=== PATIENT | female | born 1945 | race Caucasian/White ===

== ENCOUNTER 2018-03-10 10:39 | Observation (INO) | payer MEDICARE ==
--- NOTE | 2018-03-10 11:34 | RAD ---
Indication: Speech difficulty. CT of the brain was performed without IV contrast. Comparison is made with previous MRI dated September 03, 2013. Ventricular structures are midline. No midline shift is noted. The extra-axial spaces are unremarkable. There is no evidence of intracranial mass or hemorrhage. Hypodensity in the left frontal lobe adjacent to the ventricle likely represents old infarct as this was identified on prior MRI. Chronic ischemic White matter change is also noted. Mastoid air cells and paranasal sinuses are otherwise unremarkable. 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 CHRONIC ISCHEMIC WHITE MATTER CHANGE IS NOTED. NO INTRACRANIAL MASS OR HEMORRHAGE IS NOTED.
[2018-03-10 11:58] LABS: ABS Basophils 0.1 10^3/ul (0-0.2); ABS Eosinophils 0.2 10^3/ul (0-0.6); ABS Lymphocytes 2.9 10^3/ul (1.0-4.8); ABS Monocytes 0.7 10^3/ul (0-0.8); ABS Neutrophils 6.4 10^3/ul (1.5-7.7); ABS Nucleated RBC 0 10^3/ul; Eosinophil % 1.6 % (0-6); Hematocrit 42 % (35-47); Hemoglobin 14.3 g/dl (12.0-16.0); Lymphocyte % 27.9 % (25-47); Mean Corpuscular HGB Conc 35 g/dl (31-36); Mean Corpuscular Hemoglobin 30 pg (27-31); Mean Corpuscular Volume 88 fL (80-97); Mean Platelet Volume 7.3 um3 (7.4-10.4); Nucleated Red Blood Cells % 0.1; Platelet Count 270 10^3/ul (150-450); Red Blood Count 4.72 10^6/ul (4.0-5.4); Red Cell Distribution Width 13 % (10.5-15); White Blood Count 10.3 10^3/ul (3.5-10.8)
[2018-03-10 12:06] LABS: INR 0.96 (0.77-1.02)
--- NOTE | 2018-03-10 12:13 | RAD ---
INDICATION: Speech difficulty. Single frontal view of the chest performed at 1127 hours was reviewed. Comparison is made with previous exam dated August 25, 2016. No mediastinal shift is noted. Heart is of normal size and configuration. Lung dominguez appear clear. Previously identified infiltrates are no longer present. IMPRESSION: NO ACTIVE CARDIOPULMONARY DISEASE IS NOTED.
[2018-03-10 12:15] LABS: EGFR Non-African American 98.5 (>60)
[2018-03-10] MEDS ORDERED: Aspirin TAB* 325 MG PO ONE (12:48)
[2018-03-10] MEDS ORDERED: Iohexol 350* (CONTRAST) 500 ML MDV IV ONE (12:58)
[2018-03-10] MEDS ORDERED: Aspirin 81 mg CHEW TAB* 81 MG TAB.CHEW ONE (13:02)
--- NOTE | 2018-03-10 13:49 | RAD ---
Indication: Change in balance and speech. Contrast: Administered 80.1 ml of OMNIPAQUE 350 mg/ml CTA of the neck and head was performed after IV contrast administration. Coronal and sagittal reconstructed images were obtained. Aortic arch is unremarkable. Atherosclerosis of the common carotid arteries are noted. No evidence of calcific plaque is noted in the carotid bulb. The internal carotid arteries demonstrates no evidence of branch occlusion. No aneurysm dilatation is noted. The vertebral arteries demonstrates no evidence of vertebral artery dissection or occlusion. The intracranial vessels demonstrates no aneurysmal dilatation or branch occlusion. Posterior cerebral arteries are unremarkable. No branch occlusion is identified. The lung apices are otherwise unremarkable. No abnormal adenopathy is noted although scattered lymph nodes are present throughout the neck. IMPRESSION: NO EVIDENCE OF BRANCH OCCLUSION OR ANEURYSMAL DILATATION IS NOTED OF THE CAROTID ARTERIES OR INTRACRANIAL CIRCULATION.
--- NOTE | 2018-03-10 14:31 | ED ---
Brett Nicole Stephanie, scribed for Kvng Carrillo MD on 03/10/18 at 1148 . Neurological HPI - HPI Summary HPI Summary: The pt is a 72 y/o F presenting to the ED with c/o dizziness that began yesterday. Symptoms include slurred speech and decreased balance. The daughter noticed speech difficulties over the phone. The pt describes her dizziness as being off balance. She denies vision changes. - History of Current Complaint Chief Complaint: EDDizziness Stated Complaint: POSS TIA Time Seen by Provider: 03/10/18 10:48 Hx Obtained From: Patient, Family/[employer] - daughter Onset/Duration: Sudden Onset, Started days ago - 1, Still Present Timing: Constant Current Severity: Moderate Pain Intensity: 0 Pain Scale Used: 0-10 Numeric Character: Dizzy, Impaired Speech, Other: - difficulty with ambulation Aggravating: Nothing Alleviating: Nothing Associated Signs and Symptoms: Positive: Unsteady Gait, Dizziness, Impaired Speech. Negative: Visual Changes - Additional Pertinent History Primary Care Physician: [id number] - Allergy/Home Medications Allergies/Adverse Reactions: Allergies Allergy/AdvReac Type Severity Reaction Status Date / Time hydrochlorothiazide Allergy Anaphylatic Verified 03/10/18 10:42 Shock hydromorphone Allergy Headache Verified 03/10/18 10:42 Home Medications: Home Medications Antipyrine-Benzocaine 2 drop RIGHT EAR QID PRN 03/10/18 [History Confirmed 03/10] Calcium Carbonate/Vitamin D3 [Calcium 500 + Vit D Caplet] 1 each PO DAILY [History Confirmed 03/10/18] Cetirizine* [ZyrTEC 10 MG TAB*] 10 mg PO DAILY 03/10/18 [History Confirmed 03/10] Escitalopram (NF) [Lexapro 10 mg (NF)] 5 mg PO DAILY 03/10/18 [History Confirmed 03/10/18] Fluticasone NASAL SPRAY 50MCG* [Flonase NASAL SPRAY 50MCG*] 1 - 2 spray BOTH NARES DAILY 03/10/18 [History Confirmed 03/10/18] Losartan TAB* [Cozaar TAB*] 100 mg PO DAILY 03/10/18 [History Confirmed 03/10/18 ] Multivitamins/Minerals TAB* [Theragran/minerals TAB*] 1 tab PO DAILY 03/10/18 [ History Confirmed 03/10/18] amLODIPine TAB* [Norvasc 5 mg TAB*] 5 mg PO DAILY 03/10/18 [History Confirmed ] carBAMazepine TAB(*) [TEGretol TAB(*)] 100 mg PO BID 03/10/18 [History Confirmed 03/10/18] PMH/Surg Hx/FS Hx/Imm Hx Endocrine/Hematology History: Denies: Hx Diabetes Cardiovascular History: Reports: Hx Hypercholesterolemia, Hx Hypertension Denies: Hx Pacemaker/ICD Respiratory History: Reports: Hx Asthma, Hx Pneumonia - 2016 Musculoskeletal History: Reports: Other Musculoskeletal History - Broken shoulder, s/p fix Sensory History: Reports: Hx Contacts or Glasses, Hx Hearing Aid, Hx Hearing Problem Opthamlomology History: Reports: Hx Contacts or Glasses Neurological History: Reports: Other Neuro Impairments/Disorders - Trigeminal neuralgia with surgery to fix Psychiatric History: Denies: Hx Panic Disorder - Cancer History Hx Chemotherapy: No Hx Radiation Therapy: No - Surgical History Surgery Procedure, Year, and Place: , 1969. with appendectomy, 1973. MICRODECOMPRESSION SURGERY TO BRAIN 2003. HYSTERECTOMY AGE 36. LEFT SHOULDER fix after fracture 2009 Hx Anesthesia Reactions: No Infectious Disease History: No Infectious Disease History: Denies: Traveled Outside the [place] in Last 30 Days - Family History Known Family History: Positive: Other - asthma (sister) - Social History Occupation: Retired Lives: Alone Alcohol Use: None Hx Substance Use: No Substance Use Type: Reports: None Hx Tobacco Use: No Smoking Status (MU): Never Smoked Tobacco Have You Smoked in the Last Year: No Review of Systems Negative: Fever Neurological: Other - difficulty with ambulation (decreased balance), dizziness Positive: Slurred Speech All Other Systems Reviewed And Are Negative: Yes Physical Exam - Summary Physical Exam Summary: General: well-appearing, no pain distress Skin: warm, color reflects adequate perfusion, dry Head: normal Eyes: EOMI, ROX ENT: normal Neck: supple, nontender Respiratory: CTA, breath sounds present Cardiovascular: RRR Abdomen: soft, nontender Bowel: present Musculoskeletal: normal, strength/ROM intact Neurological: sensory/motor intact, A&O x3, slurred speech Psychological: affect/mood appropriate Triage Information Reviewed: Yes Vital Signs On Initial Exam: Initial Vitals Temp Pulse Resp BP Pulse Ox 97.9 F 77 16 166/64 95 03/10/18 10:41 03/10/18 10:41 03/10/18 10:41 03/10/18 10:41 03/10/18 10:41 Vital Signs Reviewed: Yes Diagnostics - Vital Signs Vital Signs Temp Pulse Resp BP Pulse Ox 03/10/18 10:41 97.9 F 77 16 166/64 95 - Laboratory Lab Results: Lab Results 03/10/18 03/10/18 03/10/18 Range/Units 11:47 11:47 11:47 WBC 10.3 (3.5-10.8) 10^3/ul RBC 4.72 (4.0-5.4) 10^6/ul Hgb 14.3 (12.0-16.0) g/dl Hct 42 (35-47) % MCV 88 (80-97) fL MCH 30 (27-31) pg MCHC 35 (31-36) g/dl RDW 13 (10.5-15) % Plt Count 270 (150-450) 10^3/ul MPV 7.3 L (7.4-10.4) um3 Neut % (Auto) 62.7 (38-83) % Lymph % (Auto) 27.9 (25-47) % Livingston % (Auto) 6.5 (0-7) % Eos % (Auto) 1.6 (0-6) % Baso % (Auto) 1.3 (0-2) % Absolute Neuts (auto) 6.4 (1.5-7.7) 10^3/ul Absolute Lymphs (auto) 2.9 (1.0-4.8) 10^3/ul Absolute Monos (auto) 0.7 (0-0.8) 10^3/ul Absolute Eos (auto) 0.2 (0-0.6) 10^3/ul Absolute Basos (auto) 0.1 (0-0.2) 10^3/ul Absolute Nucleated RBC 0 10^3/ul Nucleated RBC % 0.1 INR (Anticoag Therapy) 0.96 (0.77-1.02) APTT 31.0 (26.0-36.3) seconds Sodium 137 L (139-145) mmol/L Potassium 3.7 (3.5-5.0) mmol/L Chloride 103 (101-111) mmol/L Carbon Dioxide 27 (22-32) mmol/L Anion Gap 7 (2-11) mmol/L BUN 17 (6-24) mg/dL Creatinine 0.60 (0.51-0.95) mg/dL Est GFR ( Amer) 126.7 (>60) Est GFR (Non-Af Amer) 98.5 (>60) BUN/Creatinine Ratio 28.3 H (8-20) Glucose 129 H (70-100) mg/dL Lactic Acid (0.5-2.0) mmol/L Calcium 9.2 (8.6-10.3) mg/dL Magnesium 2.0 (1.9-2.7) mg/dL Total Bilirubin 0.40 (0.2-1.0) mg/dL AST 14 (13-39) U/L ALT 17 (7-52) U/L Alkaline Phosphatase 68 (34-104) U/L Ammonia (16-53) mcmol/L Total Creatine Kinase 56 (10-223) U/L CK-MB (CK-2) 0.9 (0.6-6.3) ng/mL Troponin I 0.01 (<0.04) ng/mL C-Reactive Protein 9.31 H (< 5.00) mg/L B-Natriuretic Peptide ( - 100) pg/mL Total Protein 7.1 (6.4-8.9) g/dL Albumin 4.0 (3.2-5.2) g/dL Globulin 3.1 (2-4) g/dL Albumin/Globulin Ratio 1.3 (1-3) Lipase 17 (11.0-82.0) U/L TSH 2.14 (0.34-5.60) mcIU/mL Acetaminophen < 15 mcg/mL Serum Alcohol < 10 (<10) mg/dL 03/10/18 03/10/18 Range/Units 11:47 11:47 WBC (3.5-10.8) 10^3/ul RBC (4.0-5.4) 10^6/ul Hgb (12.0-16.0) g/dl Hct (35-47) % MCV (80-97) fL MCH (27-31) pg MCHC (31-36) g/dl RDW (10.5-15) % Plt Count (150-450) 10^3/ul MPV (7.4-10.4) um3 Neut % (Auto) (38-83) % Lymph % (Auto) (25-47) % Livingston % (Auto) (0-7) % Eos % (Auto) (0-6) % Baso % (Auto) (0-2) % Absolute Neuts (auto) (1.5-7.7) 10^3/ul Absolute Lymphs (auto) (1.0-4.8) 10^3/ul Absolute Monos (auto) (0-0.8) 10^3/ul Absolute Eos (auto) (0-0.6) 10^3/ul Absolute Basos (auto) (0-0.2) 10^3/ul Absolute Nucleated RBC 10^3/ul Nucleated RBC % INR (Anticoag Therapy) (0.77-1.02) APTT (26.0-36.3) seconds Sodium (139-145) mmol/L Potassium (3.5-5.0) mmol/L Chloride (101-111) mmol/L Carbon Dioxide (22-32) mmol/L Anion Gap (2-11) mmol/L BUN (6-24) mg/dL Creatinine (0.51-0.95) mg/dL Est GFR ( Amer) (>60) Est GFR (Non-Af Amer) (>60) BUN/Creatinine Ratio (8-20) Glucose (70-100) mg/dL Lactic Acid 1.5 (0.5-2.0) mmol/L Calcium (8.6-10.3) mg/dL Magnesium (1.9-2.7) mg/dL Total Bilirubin (0.2-1.0) mg/dL AST (13-39) U/L ALT (7-52) U/L Alkaline Phosphatase (34-104) U/L Ammonia 46 (16-53) mcmol/L Total Creatine Kinase (10-223) U/L CK-MB (CK-2) (0.6-6.3) ng/mL Troponin I (<0.04) ng/mL C-Reactive Protein (< 5.00) mg/L B-Natriuretic Peptide 11 ( - 100) pg/mL Total Protein (6.4-8.9) g/dL Albumin (3.2-5.2) g/dL Globulin (2-4) g/dL Albumin/Globulin Ratio (1-3) Lipase (11.0-82.0) U/L TSH (0.34-5.60) mcIU/mL Acetaminophen mcg/mL Serum Alcohol (<10) mg/dL Result Diagrams: 03/10/18 11:47 03/10/18 11:47 Lab Statement: Any lab studies that have been ordered have been reviewed, and results considered in the medical decision making process. - Radiology CXR Xray Interpretation: No Acute Changes Radiology Interpretation Completed By: Radiologist - NO ACTIVE CARDIOPULMONARY DISEASE IS NOTED. ED physician has reviewed this report. 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 CHRONIC ISCHEMIC WHITE MATTER CHANGE IS NOTED. NO INTRACRANIAL MASS OR HEMORRHAGE IS NOTED. ED physician has reviewed this report. Head CTA CT Interpretation: No Acute Changes CT Interpretation Completed By: Radiologist - NO EVIDENCE OF BRANCH OCCLUSION OR ANEURYSMAL DILATATION IS NOTED OF THE CAROTID ARTERIES OR INTRACRANIAL CIRCULATION. ED physician has reciewed this report. - EKG 10:51 Cardiac Rate: NL EKG Rhythm: Sinus Rhythm - [address] Segment: Normal Ectopy: None NIH Scale - NIH Scale Level of Consciousness: Alert/Keenly Responsive Ask Patient the Month and His/Her Age: Both Correct Ask Pt to Open/Close Eyes and Quality Control Lab Technician/Release Non-Paretic Hand: Both Correctly Best Gaze (Only Horizontal Eye Movement): Normal Visual Field Testing: No Visual Loss Facial Paresis-Pt to Smile & Close Eyes or Grimace Symmetry: Normal/Symmetrical Motor Function - Right Arm: No Drift-Holds 10 Seconds Motor Function - Left Arm: No Drift-Holds 10 Seconds Motor Function - Right Leg: No Drift-Holds 10 Seconds Motor Function - Left Leg: No Drift-Holds 10 Seconds Limb Ataxia-Must be out of Proportion to Weakness Present: Absent Sensory (Use Pinprick to Test Arms/Legs/Trunk/Face): Normal Best Language (Describe Picture, Name Items): Some Loss Dysarthria (Read Several Words): Slurs Some Words Extinction and Inattention: No Abnormality Total Score: 2 Course/Dx - Course Course Of Treatment: At 14:01, Dr. Johnson accepts the pt for admission. DR HIGGINBOTHAM, NEUROLOGY, SAW PATIENT IN ED. ADMIT HOSPITALIST. CRITICAL CARE TIME LESS THAN 30 MINUTES. - Diagnoses Provider Diagnoses: CVA (cerebral vascular accident) - Physician Notifications Discussed Care Of Patient With: Negrita Higginbotham Time Discussed With Above Provider: 11:30 Instructed by Provider To: MD Will See In ED Discharge - Sign-Out/Discharge Documenting (check all that apply): Discharge/Admit/Transfer - Discharge Plan Condition: Stable Disposition: ADMITTED TO [facility] Referrals: Isai Espinoza MD [Primary Care Provider] - - Billing Disposition and Condition Condition: STABLE Disposition: [facility] [place] The documentation as recorded by the Brett canseco Stephanie accurately reflects the service I personally performed and the decisions made by me, Kvng Carrillo MD.
--- NOTE | 2018-03-10 15:54 | CONS ---
CONSULTATION REPORT: DATE OF CONSULT: 03/10/18 REASON FOR CONSULT: Change in speech and balance. HISTORY OF PRESENT ILLNESS: Marquise Blackburn is a 72-year-old woman known to me from outpatient care for trigeminal neuralgia who has developed new neurologic symptoms in the last 24 to 36 hours. Yesterday morning, she woke up and when she got up, she felt "lightheaded." She went back to bed, tried to get up again , again had these symptoms. When asked to further define these symptoms, she indicated that it was "as if I will tip over." She had to grab on to garcia when she walked. Her daughter called her later in the day and noted that her speech was slow, and sounded as if there was marbles in her mouth. This continued yesterday and improved in the evening. She is still however had to hold on to garcia when she walked. There was no change in her facial expression. No numbness and weakness of arms or legs and she said she could use her arms for eating and she could swallow okay. She did feel like she was struggling for words. Her facial expression appeared symmetric. This morning, again she got up and had the same sensation. Her symptoms had improved enough yesterday that she had driven. Today, she did not feel like she could drive. In the middle of the night, she had to go to the bathroom and at that time, she had been fine. She again had transient speech changes as described above this morning, and all of her symptoms have now resolved. Throughout this, she denies any diplopia. There has been no chest pain, chest pressure, shortness of breath. She does not take aspirin at baseline. PAST MEDICAL HISTORY: Includes hypertension and she is on 2 different medications. She indicates that she is on losartan 50 mg a day and is also on a medication that she starts with an A and appears to be amlodipine 5 mg a day. She is also noted in the chart to have a history of high cholesterol and a history of sleep apnea treated with CPAP. She has trigeminal neuralgia for which she has had surgery and gamma knife therapy. Her trigeminal neuralgia has been bilateral, see below surgical history for details. She has a history of osteoarthritis, essential tremor affecting her left greater than right upper extremity. PAST SURGICAL HISTORY: She has had previous surgeries including surgery for left humeral fracture in 2009, microdecompression in 2006 for trigeminal neuralgia, gamma knife surgery bilateral in 2012, hysterectomy with bilateral salpingo- oophorectomy, x2, appendectomy in 1970, bladder repair after hysterectomy. CURRENT MEDICATIONS: Include: 1. Lexapro 5 mg p.o. daily. 2. Losartan 50 mg p.o. daily. 3. Amlodipine 5 mg p.o. daily. 4. She takes Turmeric p.o. b.i.d. 5. She had been on carbamazepine which has been stopped. ALLERGIES: Include HYDROCHLOROTHIAZIDE which resulted in anaphylaxis requiring hospitalization, HYDROMORPHONE which resulted in headaches, and LEVAQUIN which caused rash. FAMILY HISTORY: Includes father who of heart attack at age 65. Mother who had hypertension and breast cancer, congestive heart failure at 93. Sister with breast cancer. Son with diabetes and a myocardial infarction in his 40s. SOCIAL HISTORY: Marquise Blackburn has a remote history of smoking. She rarely drinks alcohol. PHYSICAL EXAM: Most recent temperature was 97.9 degrees Fahrenheit, her heart rate was 74 and regular, respiratory rate was 22, saturation was 93%, and blood pressure was 120/55. She had a regular cardiac rhythm. Her lungs are clear to auscultation. There was no evidence of peripheral edema. No rashes. Her peripheral pulses were intact. She was awake, alert, articulate, had normal language function. Adequate fund of knowledge. Her pupils were equal and responsive to light. Her fundi were flat. She had full extraocular movements with no nystagmus and full dominguez to confrontation. There was no diplopia on extraocular movements. Her facial expression and sensation were equal. Hearing was decreased to finger rub on the left. Palate was upgoing. Tongue was midline and sternocleidomastoid and trapezius were 5/5 in strength. There was normal bulk and tone. No pronator drift. She gave full strength in her upper and lower extremities. Had normal nknwra-jl-peli and tshl-gb-auis movements with the exception of tremor in the left upper extremity which was increased with position. There were no asymmetries to pinprick, cold or light touch. Vibration sensation was decreased at the large toes by approximately 10 seconds. Proprioception was intact. Her reflexes were 2+ and symmetric in her upper and lower extremities. Romberg was negative. She could walk forward and backwards in the room without difficulty; however, tandem gait was difficult. DIAGNOSTIC STUDIES/LAB DATA: Includes TSH of 2.14. Complete metabolic panel with sodium low at 137. BUN and creatinine ratio was elevated at 28.3. Glucose was 129. C-reactive protein was elevated at 9.31. CBC did not show any significant pathology. Her chest x-ray was read as showing no active cardiopulmonary disease. Her CT of the brain does show old hypodensities in the periventricular region consistent with small vessel ischemic disease and one larger lesion near the left frontal horn of the lateral ventricle. This film was reviewed directly compared to previous and this lesion has been seen before on MRI. IMPRESSION AND PLAN: Marquise Blackburn is a 72-year-old woman with a history of hypertension, hyperlipidemia and sleep apnea, who is now in the emergency room for a transient difficulty with balance as well as change in speech, which is slow, and sounds as if there are marbles in her mouth. These 2 findings together are consistent with posterior circulation events and are very concerning for repeat transient ischemic attacks. Given the repeat episodes, I have asked for immediate CTA of the brain and neck to look for a tight stenosis. Aspirin be given here in the emergency room. Pending on results, will depend on disposition here or in [place] with admission for workup for stroke. She will need fasting lipid profile, may need to start on a statin, echocardiogram, telemetry, MRI of the brain. She will need to maintain perfusion and may need perfusion pressure higher than her normal blood pressure depending on stenosis found and symptoms. Again, we will await CTA. She is normotensive in the emergency room. Over an hour and half was spent on direct patient care. Education was given to patient's daughters regarding differential diagnosis and approach to workup and current treatment and communication was given to ER nursing and physician. [id number]/[facility] #: [id number] ALISTAIR
[2018-03-10] MEDS: NS 0.9% 1000 ML* 1,000 ML IV SCH ×2 (17:13→23:59)
--- NOTE | 2018-03-10 20:14 | HP ---
CC: Dr. Isai Espinoza * HISTORY AND PHYSICAL: DATE OF ADMISSION: 03/10/18 PRIMARY CARE PROVIDER: Dr. Isai Espinoza. ATTENDING PHYSICIAN: Dr. Mary Johnson * (dictated by Funmilayo Drake NP) CHIEF COMPLAINT: Dizziness and changes in speech. HISTORY OF PRESENT ILLNESS: Ms. Blackburn is a 72-year-old female with past medical history significant for hypertension, trigeminal neuralgia, who had been in her usual state of health other than feeling dizziness when she gets up to walk recently. She denies any recent fevers, chills, chest pain, cough, shortness of breath, nausea, vomiting, diarrhea, or dysuria. The patient states that yesterday morning when she got up, she felt dizzy, but when she was up and moving, she felt better. Her daughter called her and noticed that she was having difficulty with her speech. Her daughter describes the speech difficulty as slowed speech and talking as though she had marbles in her mouth. She went to check at her mom and this had seemed to have resolved. They then again noticed some changes with her speech this morning and she continues to have dizziness. Due to her symptoms, they brought her to the emergency room for further evaluation. While in the emergency room, the patient received aspirin and normal saline. She had a brain CT showing no significant findings, a chest x-ray with no findings, an EKG that was without acute findings. She had labs that were essentially unremarkable. She was seen in consultation by Neurology for possible TIA versus stroke. It was recommended that the patient be admitted. Hospitalists were asked to evaluate the patient for admission. PAST MEDICAL HISTORY: 1. Hypertension. 2. Trigeminal neuralgia. PAST SURGICAL HISTORY: Status post trigeminal neuralgia surgery. MEDICATIONS: Home medications include: 1. Multivitamin 1 tablet oral daily. 2. Flonase nasal spray 1 to 2 sprays to both nares daily. 3. Calcium 500 plus vitamin D 1 capsule oral daily. 4. Zyrtec 10 mg oral daily. 5. Amlodipine 5 mg oral daily. 6. Ambien 5 mg oral at bedtime as needed for insomnia. 7. Losartan 100 mg oral daily. 8. Lexapro 5 mg oral daily. 9. Antipyrine-benzocaine 2 drops to the right ear four times daily as needed. ALLERGIES: HYDROCHLOROTHIAZIDE caused anaphylactic shock, HYDROMORPHONE causes headaches. FAMILY HISTORY: The patient's father had a history of heart disease, son with a history of diabetes mellitus, and mother and sister with a history of breast cancer. SOCIAL HISTORY: The patient denies tobacco or recreational drug use. She rarely drinks alcohol. Her daughter, Jessica Caceres, will be her surrogate decision maker in the event she is unable to make decisions for herself. REVIEW OF SYSTEMS: I performed an 11-point review of systems. All the pertinent positives and negatives are mentioned in the history of present illness. The remaining review of systems is negative. PHYSICAL EXAMINATION GENERAL APPEARANCE: The patient is alert, pleasant, appears to be in no acute distress. VITAL SIGNS: Temperature 97.9, heart rate 79, respiratory rate 19, O2 sat 93% on room air, blood pressure 131/70. HEENT: Normocephalic, atraumatic. Pupils are equal and reactive to light. Extraocular movements are intact. RESPIRATORY: There is no accessory muscle use. The lungs are clear to auscultation bilateral. CARDIOVASCULAR: Regular rate and rhythm. S1, S2 present. There are no murmurs , rubs, or gallops heard. ABDOMEN: Soft, nontender, nondistended. There are bowel sounds present x4. EXTREMITIES: There is no lower extremity edema. DP and PT pulses are 2+ and symmetric. MUSCULOSKELETAL: There is no clubbing or cyanosis noted. The patient exhibits good strength in all extremities. NEUROLOGICAL: The patient is alert and oriented x4. Cranial nerves II through XII are grossly intact. The patient has equal hand dynamic etching processor. Her dorsi and plantar flex are equal bilateral. She is able to lift both legs off the bed. She has no pronator drift. Her smile is symmetric. Her tongue is midline. She is able to perform heel from ankle to knee bilateral without difficulty. She is able to perform [id number] bilateral without any difficulty. PSYCHOLOGICAL: The patient is calm and cooperative. SKIN: There are no rashes or abnormalities seen. DIAGNOSTIC STUDIES/LAB DATA: Sodium 137, potassium 3.7, chloride 103, CO2 27, BUN 17, creatinine 0.60, glucose 129. White blood cell count 10.3, hemoglobin 14.3, hematocrit 42, platelet count 270. Toxicology: Acetaminophen less than 15, serum alcohol less than 10. EKG: Shows a sinus rhythm, rate of 69. There are no acute signs of ischemia. This EKG is similar to previous EKGs from 08/14/16 and 09/18/08. Chest x-ray from today. Radiologist's impression: No active disease. Brain CT from today. 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 Chronic ischemic white matter changes are noted. No intracranial mass or hemorrhage is noted. Brain CTA from today. Radiologist's impression: No evidence of branch occlusion or aneurysmal dilation is noted of the carotid artery or intracranial circulation. IMPRESSION: Ms. Blackburn is a 72-year-old female with past medical history significant for hypertension, trigeminal neuralgia, who presented to the emergency room with complaints of dizziness and intermittent difficulty with her speech. She will be admitted as an observation for a cerebrovascular accident versus transient ischemic attack workup. ASSESSMENT/PLAN: 1. Dizziness and difficulty with speech. This could represent a cerebrovascular accident versus transient ischemic attack. She has no signs of cerebrovascular accident on her brain CT. She had a head CTA with no signs of any occlusions or dissections. We are going to get an MRI. She will have neuro checks q.4 hours. She will be monitored on telemetry. I questioned if some of her dizziness could be secondary to orthostasis, so I am going to get orthostatic vital signs on her. She has been normotensive without taking her blood pressure medication this morning or last evening. She states she usually takes them in the evening, so I am going to hold her antihypertensives tonight to allow for some permissive hypertension in the setting of a possible cerebrovascular accident. We will check fasting lipids in the morning. She will get an echocardiogram. She has already been seen in consultation by Neurology. We will continue to follow along as her workup is completed. 2. Hypertension. Again, at this time, the patient has been normotensive in the emergency room. We are going to hold her antihypertensives tonight to allow for permissive hypertension. We will resume them accordingly. 3. Trigeminal neuralgia. Continue supportive care. 4. Morbid obesity. The patient's BMI is 36. 5. Fluids, electrolytes, and nutrition. The patient will be on a heart- healthy diet. 6. Code status. Full code. 7. DVT prophylaxis. She is a high risk and will have subcu heparin. 8. Disposition. Observation. TIME SPENT: Time for this admission was approximately 60 minutes, greater than half of that was spent with the patient and her family discussing medications, past medical history, and the events leading up to her arrival today, and performing a physical examination. The case has been reviewed with the attending, Dr. Johnson, who agrees with the plan of care. Reviewed by BREANNA ALICEA 03/11/18 1330 [id number]/[facility] #: [id number] MTDD
[2018-03-10] MEDS: carBAMazepine TAB(*) 200 MG PO SCH (21:38)
[2018-03-10] MEDS: Heparin VIAL(*) 5000 UNITS/ML VIAL (FIVE THOUSAND) SUBCUT SCH (21:39)
[2018-03-10] MEDS: CMCS Melatonin (NF) 3 MG TAB PO SCH (22:38)
[2018-03-11] MEDS: Heparin VIAL(*) 5000 UNITS/ML VIAL (FIVE THOUSAND) SUBCUT SCH ×3 (06:56→21:14)
[2018-03-11] MEDS: NS 0.9% 1000 ML* 1,000 ML IV SCH (07:21)
[2018-03-11] MEDS: Cetirizine* 10 MG TAB PO SCH (08:23)
[2018-03-11] MEDS: Aspirin 81 mg CHEW TAB* 81 MG TAB.CHEW PO SCH (08:23)
[2018-03-11] MEDS: Citalopram TAB* 10 MG PO SCH (08:23)
[2018-03-11] MEDS: Multivitamins/Minerals TAB PO SCH (08:23)
[2018-03-11] MEDS: Fluticasone NASAL SPRAY 50MCG* 16 gm SPRAY BTL BOTH NARES SCH (08:24)
[2018-03-11] MEDS: carBAMazepine TAB(*) 200 MG PO SCH (08:24)
--- NOTE | 2018-03-11 11:09 | PN ---
Subjective Date of Service: 03/11/18 Interval History: Patient seen and examined at bedside. Denies fever, chills, shortness of breath , chest discomfort, N/V/D. Pt states that the dizziness and speech difficulty have resolved. She states that she is surprised that her blood pressure isn't elevated here and it is usually elevated at home and the doctors office, we discussed hoe to make sure the BP cuff is the correct size to ensure correct BP readings. Tele: Sinus rhythm, rate 60-80's Family History: Unchanged from Admission Social History: Unchanged from Admission Past Medical History: Unchanged from Admission Objective Active Medications: Aspirin (Aspirin 81 Mg Chew Tab*) 81 mg PO DAILY LEEANNA Atorvastatin Calcium (Lipitor*) 20 mg PO 1700 LEEANNA Cetirizine HCl (Zyrtec*) 10 mg PO DAILY [facility]EEANNA Citalopram Hydrobromide (Celexa Tab*) 10 mg PO DAILY LEEANNA Fluticasone Propionate (Flonase Nasal [place] 50mcg*) 1 spray BOTH NARES DAILY [facility] Heparin Sodium (Porcine) (Heparin Vial(*)) 5,000 units SUBCUT Q8HR LEEANNA Sodium Chloride (Ns 0.9% 1000 Ml*) 1,000 mls @ 150 mls/hr IV PER RATE [facility] Melatonin (Melatonin (Nf)) 3 mg PO BEDTIME LEEANNA Multivitamins/Minerals (Theragran/Minerals Tab*) 1 tab PO DAILY [facility] Vital Signs - 8 hr 03/11/18 03/11/18 03:29 07:33 Temperature 97.7 F 97.8 F Pulse Rate 67 65 Respiratory 16 16 Rate Blood Pressure 115/50 130/65 (mmHg) O2 Sat by Pulse 95 97 Oximetry Oxygen Devices in Use Now: None Appearance: NAD, laying in bed Ears/Nose/Mouth/Throat: Mucous Membranes Moist Respiratory: Symmetrical Chest Expansion and Respiratory Effort, Clear to Auscultation Cardiovascular: NL Sounds; No Murmurs; No JVD, RRR Abdominal: NL Sounds; No Tenderness; No Distention Extremities: No Edema Skin: No Rash or Ulcers Neurological: Alert and Oriented x 3, NL Muscle Strength and Tone Lines/Tubes/Other Access: Clean, Dry and Intact Peripheral IV - site benign Nutrition: Taking PO's Result Diagrams: 03/10/18 11:47 03/10/18 11:47 Additional Lab and Data: Assess/Plan/Problems-Billing Assessment: Ms. Blackburn is a 72 yo female with PMH significant for HTN and trigeminal neuralgia who presented to the emergency room with complaints of dizziness and difficulty with speech. - Patient Problems (1) Dizziness Code(s): R42 - DIZZINESS AND GIDDINESS SNOMED Code(s): 056449812 Comment: - With associated difficulty with speech, now resolved - Suspect possible TIA vs hypoperfusion - Brain CT without significant findings - No orthostasis noted yesterday - Neurology consult, input appreciated - Echo and MRI pending - Continue neuro checks (2) HLD (hyperlipidemia) Code(s): E78.5 - HYPERLIPIDEMIA, UNSPECIFIED SNOMED Code(s): 53150376 Comment: - Started on atorvastain (3) HTN (hypertension) Code(s): I10 - ESSENTIAL (PRIMARY) HYPERTENSION SNOMED Code(s): 88742015 Comment: - Mostly normotensive, SBP 110-140's - Continue to hold antihypertensives for now (4) Trigeminal neuralgia Code(s): G50.0 - TRIGEMINAL NEURALGIA SNOMED Code(s): 06948422 Comment: - Pt not currently taking medications - Supportive care (5) DVT prophylaxis Code(s): MZX7029 - SNOMED Code(s): 936620589 Comment: - SQ heparin (6) Full code status Code(s): Z78.9 - OTHER SPECIFIED HEALTH STATUS SNOMED Code(s): 374842556 Status and Disposition: OBV. MRI and echo pending. Discharge to home when medically stable.
[2018-03-11] MEDS ORDERED: Atorvastatin* 20 MG TAB PO SCH (17:00)
[2018-03-11] MEDS: CMCS Melatonin (NF) 3 MG TAB PO SCH (21:12)
--- NOTE | 2018-03-11 21:19 | PN ---
CC: Isai Espinoza MD * PROGRESS NOTE: 03/11/18 HISTORY OF PRESENT ILLNESS: Overnight Jeffery Blackburn has had no further symptoms. Yesterday, she was normotensive in the emergency room without taking her blood pressure medications and accordingly they were held. This morning, she has had no symptoms of difficulty with balance. No change in speech. Her blood pressure has remained normotensive. She feels good. She has had lipid profile come back with elevated cholesterol of 229, LDL 158, her HDL was 41.9, triglycerides 146. She indicates that that was elevated. PHYSICAL EXAMINATION: On examination today, Jeffery Blackburn's most recent blood pressure was 130/65, her pulse was 65 and regular, respiratory rate was 16 , saturation was 97%, temperature is 97.8 degrees Fahrenheit. She had a regular cardiac rhythm. Her lungs were clear to auscultation. She was awake, alert, articulate. She had full extraocular movements with no nystagmus. Her facial expression and sensation were equal. There was full dominguez to confrontation. She had upgoing palate. Tongue was midline. Sternocleidomastoid and trapezius were 5/5 in strength. There was normal bulk and tone. No pronator drift. Full strength in the upper and lower extremities with normal [id number] and heel-to- stein movements. Romberg was negative. She walked forward and backwards without difficulty. CURRENT MEDICATIONS: Include: 1. Aspirin 81 mg p.o. daily. 2. Zyrtec 10 mg p.o. daily. 3. Celexa 10 mg p.o. daily. 4. Flonase 1 spray both nares daily. 5. Heparin 5000 units subcu q.8 hours. 6. Melatonin 3 mg p.o. q.h.s. 7. Multivitamin 1 tablet p.o. daily. 8. She is receiving sodium chloride at 150 mL/hour. 9. She had been on carbamazepine as an outpatient; however she is no longer taking this with resolution of her facial pain. IMPRESSION: Jeffery Blackburn is a 72-year-old woman with a history of hypertension, hyperlipidemia, sleep apnea, who came in with repeat episodes of difficulty with balance and change in speech with slow dysarthric speech. Her symptoms were concerning for a posterior circulation transient ischemic attack. She had a CTA, which showed no significant stenosis and accordingly was admitted for workup of stroke. She is on telemetry. Echocardiogram with bubble study is pending. MRI of the brain is pending. As she is on aspirin and given her lipid profile, we will add atorvastatin at bedtime. Education was given regarding side effects of atorvastatin including but not limited to change in liver enzymes, muscle discomfort, soreness. She is to follow up with her primary doctor in the future for treatment of cholesterol at minimum. After potential stroke/transient ischemic attack, she should be on atorvastatin for benefits after cerebrovascular event and for the treatment of enzyme levels. Her antihypertensive medications had been held. Question is raised on whether hypoperfusion may have contributed to her symptoms. One must also watch for rebound hypertension. As noted above, carbamazepine was stopped, as her facial pain has been resolved and she is no longer on this medication. Education was given regarding diagnoses, differential diagnosis, medication, medication side effects, all questions were answered. Dr. Arce is to take over her care in the morning. TIME SPENT: Twenty-five minutes was spent in direct patient care, over 50% of the time was spent in education and counseling. All questions were answered. [id number]/[facility] #: [id number] ALISTAIR
[2018-03-12] MEDS: Heparin VIAL(*) 5000 UNITS/ML VIAL (FIVE THOUSAND) SUBCUT SCH ×2 (05:51→13:24)
[2018-03-12] MEDS: Fluticasone NASAL SPRAY 50MCG* 16 gm SPRAY BTL BOTH NARES SCH (07:27)
[2018-03-12] MEDS: Aspirin 81 mg CHEW TAB* 81 MG TAB.CHEW PO SCH (07:27)
[2018-03-12] MEDS: Multivitamins/Minerals TAB PO SCH (07:28)
[2018-03-12] MEDS: Citalopram TAB* 10 MG PO SCH (07:28)
[2018-03-12] MEDS: Cetirizine* 10 MG TAB PO SCH (07:28)
--- NOTE | 2018-03-12 09:58 | ECHO ---
Patient: DEBORAH MOULTON [facility] Rec#: [id number] : 1945 Date: 03/12/2018 Age: 72y Height: 152.4 cm / 60.0 in Weight: 85.73 kg / 188.9 lbs Sex: F BSA: 1.82 Room#: [facility] Admit Date#: 03/10/2018 Type: Inpatient Referring: Funmilayo Mandujano NP Reading: Salazar Encinas MD Promotions Assistant: Negrita King RDCS,RDMS CC: Isai Espinoza MD Transthoracic Echocardiogram Indication: TIA BP: 115/80 HR: 68 Rhythm: NSR Findings History: HTN, TRIGEMINAL NEURALGIA Left Ventricle: The left ventricular chamber size is normal. Mild concentric left ventricular hypertrophy is observed. Global left ventricular wall motion and contractility are within normal limits. There is normal left ventricular systolic function. The estimated ejection fraction is 55-60%. There is an E to A reversal in the mitral valve flow pattern suggestive of diastolic dysfunction. Left Atrium: The left atrial chamber size is normal. Right Ventricle: The right ventricular chamber size and systolic function are within normal limits. Right Atrium: The right atrial cavity size is normal. The bubble study is negative. A patent foramen ovale is not demonstrated with color Doppler and agitated contrast. Aortic Valve: The aortic valve is trileaflet. The aortic valve leaflets are mildly thickened. There is aortic annular calcification. There is a trace of aortic regurgitation. There is borderline aortic stenosis present. The mean gradient of the aortic valve is 6.7 mmHg. The aortic valve area, by peak velocities, is calculated at 2 cm2. Mitral Valve: Mild mitral annular calcification present. The mitral valve leaflets are mildly thickened. There is trace to mild mitral regurgitation. There is no evidence of mitral stenosis. Tricuspid Valve: The tricuspid valve leaflets are normal. There is trace tricuspid regurgitation. No pulmonary hypertension is noted. Pulmonic Valve: There is no evidence of pulmonic valve thickening. There is no evidence of pulmonic regurgitation. Pericardium: There is no significant pericardial effusion. Aorta: The aortic root appears normal. There is no dilatation of the aortic arch. Pulmonary Artery: The main pulmonary artery is not well visualized. Venous: The inferior vena cava is dilated. There is a greater than 50% respiratory change in the inferior vena cava dimension. Contrast: Intravenous agitated saline contrast was used to assess intracardiac shunting. Summary: There was not any prior study for comparison. Conclusions Mild concentric left ventricular hypertrophy is observed. Global left ventricular wall motion and contractility are within normal limits. There is normal left ventricular systolic function. The estimated ejection fraction is 55-60%. A patent foramen ovale is not demonstrated with color Doppler and agitated contrast. There is a trace of aortic regurgitation. There is borderline aortic stenosis present. The mean gradient of the aortic valve is 6.7 mmHg. There is trace to mild mitral regurgitation. There is trace tricuspid regurgitation. There is no significant pericardial effusion. Measurements Name Value Normal Range RVIDd (AP) 2D 2.5 cm (0.9 - 2.6) RVDdMajor (2D) 2.8 cm (2.2 - 4.4) RAd ISD 4CH 4.7 cm (3.4 - 4.9) RA (A4C)W 3.6 cm (2.9 - 4.6) IVSd (2D) 1.3 cm (0.6 - 1) LVPWd (2D) 1.1 cm (0.6 - 1) LVIDd (2D) 3.6 cm (3.6 - 5.4) LVIDs (2D) 2.2 cm - LV FS (2D) 39 % (25 - 45) Aortic Annulus 2 cm (1.4 - 2.6) Ao root diameter (2D) 2.7 cm (2.1 - 3.5) Ascending Ao 3 cm (2.1 - 3.4) Aortic arch 2.8 cm (1.8 - 3.4) LA dimension (AP) 2D 3.5 cm (2.3 - 3.8) LAd ISD 4CH 5.2 cm (2.9 - 5.3) LA ISD 4CH W 3.8 cm (2.5 - 4.5) Name Value Normal Range LA ESV SP 4CH (A/L) 48.76 ml - LA ESV SP 2CH (A/L) 45.78 ml - LA ESV BP (A/L) 48.65 ml - LA ESV BP (A/L) index 27 ml/m2 - LA ESV SP 4CH (MOD) 46.49 ml - LA ESV SP 2CH (MOD) 42.78 ml - Name Value Normal Range MV E-wave Vmax 0.8 m/sec - MV deceleration time 169 msec - MV A-wave Vmax 0.9 m/sec - MV E:A ratio 0.9 ratio - P. vein S-wave Vmax 0.6 m/sec - P. vein D-wave Vmax 0.4 m/sec - P. vein S:D Vmax ratio 1.7 ratio - P. vein A-wave duration 83 msec - LV septal e' Vmax 0.05 m/sec - LV lateral e' Vmax 0.07 m/sec - LV E:e' septal ratio 15 ratio - LV E:e' lateral ratio 11 ratio - Name Value Normal Range AV Vmax 1.7 m/sec - AV VTI 39.4 cm - AV peak gradient 11 mmHg - AV mean gradient 6.7 mmHg - LVOT diameter 2 cm - LVOT Vmax 1.1 m/sec - LVOT VTI 22.3 cm - LVOT peak gradient 5 mmHg - LVOT mean gradient 2.3 mmHg - DOI (VTI) 0.6 ratio - KISHA (continuity Vmax) 2 cm2 - KISHA (continuity VTI) 1.8 cm2 - [place] Vmax 0.4 m/sec - Name Value Normal Range TR Vmax 1.9 m/sec - TR peak gradient 14 mmHg - RAP 3 mmHg - RVSP 17 mmHg - IVC diameter 2.2 cm - Name Value Normal Range PV Vmax 0.7 m/sec - PV peak gradient 2 mmHg -
--- NOTE | 2018-03-12 11:09 | RAD ---
HISTORY: Slurred speech, dizziness COMPARISONS: September 03, 2013 TECHNIQUE: The following sequences were obtained of the head: Sagittal T1-weighted images, axial T2-weighted images, axial FLAIR images, axial susceptibility weighted images, axial T1-weighted images. Additionally, axial diffusion-weighted images were obtained with calculated apparent diffusion coefficients. FINDINGS: HEMORRHAGE/INFARCT: There is a focus of restricted diffusion within the left tatum consistent with subacute nonhemorrhagic infarct measuring 0.7 cm in size. Elsewhere, there is no hemorrhage or acute infarct. MASSES/SHIFT: There is no mass or shift. EXTRA-AXIAL SPACES/MENINGES: There are no extra-axial fluid collections. SULCI AND VENTRICLES: There is mild diffuse and proportional enlargement of the sulci and ventricles. CEREBRUM: There is multifocal elevated T2/FLAIR signal in the periventricular and subcortical white matter. There is a small focus of encephalomalacia of the left king radiata consistent with remote infarct. BRAINSTEM: There is a focus of elevated T2/flair signal corresponding to the area of acute diffusion within the left tatum. CEREBELLUM: There are no focal parenchymal abnormalities. The cerebellar tonsils are normal in size and position. SELLA: The sella is normal. PINEAL: The pineal region is clear. CP ANGLE/TEMPORAL BONES: The labyrinthine structures are grossly normal. VESSELS: Normal flow-voids are noted within the visualized vertebral vasculature. DIFFUSION ABNORMALITIES: As noted above, there is restricted diffusion within the left tatum consistent with subacute nonhemorrhagic infarct. PARANASAL SINUSES/MASTOIDS: The paranasal sinuses are clear. ORBITS: The orbits are unremarkable. BONES AND SOFT TISSUE: No bone or soft tissue abnormalities are noted. OTHER: None IMPRESSION: 1. 0.7 CM FOCUS OF RESTRICTED DIFFUSION WITHIN THE LEFT TATUM CONSISTENT WITH SUBACUTE NONHEMORRHAGIC INFARCT. 2. ELEVATED T2/FLAIR SIGNAL IN THE PERIVENTRICULAR AND SUBCORTICAL WHITE MATTER, CONSISTENT WITH CHRONIC SMALL VESSEL ISCHEMIA, WITH A FOCUS OF ENCEPHALOMALACIA IN THE LEFT KING RADIATA CONSISTENT WITH REMOTE INFARCT
[2018-03-12 12:28] VITALS: BP 149/61
[2018-03-12] MEDS ORDERED: Atorvastatin* 80 MG TAB PO SCH (17:00)
--- NOTE | 2018-03-13 05:18 | PN ---
PROGRESS NOTE: DATE OF SERVICE: 03/12/2018. PATIENT OF: Dr. Torres and Dr. Jalloh HISTORY: This is a 72-year-old woman who I was asked to see in followup for a possible stroke. She remains asymptomatic. MEDICATIONS: Include: 1. Lipitor 20 mg daily. 2. Aspirin 81 mg daily, and she was not any platelet medication prior to hospitalization. 3. Zyrtec 10 mg daily. 4. Celexa 10 mg daily. 5. Flonase 1 spray both nares daily. REVIEW OF SYSTEMS: Negative in all 14 spheres. PHYSICAL EXAMINATION: Temperature 98, pulse 70, respiratory rate 16, blood pressure 149/61. She is alert and oriented with normal speech and comprehension. Cranial nerves II through XII are intact. Fundi were benign. Motor exam revealed normal tone, strength, coordination including finger-to- nose. Reflexes symmetric. Chest clear. Cardiovascular: Regular rate and rhythm. Abdomen is soft with positive bowel sounds. IMAGING: Her transthoracic echo showed no evidence of clot and no PFO. There is some mild left ventricular hypertrophy. Her MRI scan was reviewed and showed a subacute nonhemorrhagic infarct in her left micki with some diffuse chronic white matter disease. There is some left encephalomalacia, assume that is consistent with her remote infarct. PLAN: I discussed with Jessikajuany that she has had a left pontine stroke. I think that this may be due to small vessel disease given her risk factors including obesity, hypertension, elevated cholesterol, and sleep apnea. She is going to wear her nasal CPAP more consistently. We are increasing her aspirin to 325, and I have spoken to Dr. Jalloh who is going to more aggressively begin treatment for her lipids to bring it down, her LDL by more than half. Followup will be with Dr. Torres whom she is seeing in a few weeks' time. I will discuss with Dr. Torres whether just going to aspirin 325 is enough. I think that the mechanism is most likely here small vessel ischemic disease and I think monotherapy with 1 antiplatelet agent is sufficient, but I will discuss this further with Dr. Torres who will be her ongoing neurologist. She will be discharged today and her blood pressure will need to be followed closely as an outpatient. She has been normotensive here but she apparently has had hypertension at home. [id number]/[facility] #: [id number] [facility]
--- NOTE | 2018-03-13 06:16 | DS ---
CC: Dr. Espinoza; Dr. Torres DISCHARGE SUMMARY: DATE OF ADMISSION: 03/10/18 DATE OF DISCHARGE: 03/12/18 HISTORY: This 72-year-old woman presented with dizziness. She woke up on the day of admission on . She said she was dizzy. She did not fall down or pass out. When the daughter came over, th e daughter felt she was talking funny, although the patient said she did not notice this. The patien t also said she was told when she walked, she had to hold on to the garcia, but she does not remember this herself either other than being told of. She was brought to the hospital and admitted. By 02/27 01/14, she felt well and continues to feel well at the time of discharge. She was evaluated with a CT scan of the brain, a CTA of the brain, an MRI and an echocardiogram. The CT scan of the brain showed an old infarct in the left periventricular white matter seen in August 2013. The CTA of the head did not show any branch occlusion or aneurysmal dilatation of the carotid arteries or intracranial circulation. Echocardiogram showed normal ejection fraction at 55% to 60%. Bubble study was normal. There was mild concentric left ventricular hypertrophy. MRI of the brain showed a left pontine subacute nonhemorrhagic infarct, 0.7 cm focus of restricted diffusion. Dr. Torres saw the patient in consultation and Dr. Arce followed up on her the next day. Althoug h she has been on 20 mg atorvastatin at home, her LDL was 158 here fasting. We are going to increase her atorvastatin to 80 mg daily. She will take aspirin 325 mg daily. She will follow up with Dr. Jay griffin as per scheduled appointment later this month. FINAL DIAGNOSES: 1. Left pontine cerebrovascular accident. 2. Hypertension. 3. Trigeminal neuralgia. 4. Hyperlipidemia. DISCHARGE MEDICATIONS: 1. Aspirin 325 mg daily. 2. Atorvastatin 80 mg daily at 5 p.m. 3. Multivitamin with minerals daily. 4. Fluticasone nasal spray both nares daily. 5. Calcium with vitamin D3, 1 daily. 6. Cetirizine 10 mg daily. 7. Amlodipine 5 mg daily. 8. Losartan 100 mg daily. 9. Escitalopram 5 mg daily. 10. Ear drops 4 times a day p.r.n. 11. Zolpidem 5 mg h.s. p.r.n. [id number]/[facility] #: [id number]
[2018-03-13] MEDS ORDERED: Aspirin TAB* 325 MG PO SCH (09:00)
== END 2018-03-12 15:56 | disposition home or self-care (01) ==
LOC: ED 10:39 → MEDTELE 14:47
PROVIDERS: ADMIT Internal Medicine; ATTEND Internal Medicine
DX: I63.8 Other cerebral infarction (principal); R42 Dizziness and giddiness; I10 Essential (primary) hypertension; G50.0 Trigeminal neuralgia; E78.5 Hyperlipidemia, unspecified; Z79.82 Long term (current) use of aspirin; G47.30 Sleep apnea, unspecified
CPT/HCPCS: 36415; 70450; 70496; 70498; 70551; 71045; 80053; 80061; 80320; 80329; 82140; 82550; 82553; 83605; 83690; 83735; 83880; 84443; 84484; 85025; 85610; 85730; 86140; 93005; 93306; 96360; 96361; 99283; A9270-GY; G0378; G0480; J1644; Q9967

== ENCOUNTER 2018-07-18 12:11 | Observation (INO) | payer MEDICARE ==
[2018-07-18] MEDS ORDERED: NS 0.9% 1000 ML* 1,000 ML IV ONE (12:23)
--- OUTSIDE RECORDS SUMMARY | 2018-07-18 12:25 | XMS REPORT ---
:1945 External Reference #:[id number] Author Organization [employer] Address [address] [place] [address] [place] [address] Phone [phone] Care Team Providers Name Role Phone Isai Espinoza M.D. Primary Care Physician Unavailable Payers Type Date Identification Numbers Payment Provider Subscriber Commercial Policy Number: [id number] [employer] Marquise Blackburn PayID: [id number] [address] [address] Attn: [place] [address] Problems Date Description Provider Status Onset: 11/11/2013 Current tear of medial cartilage AND/OR Parveen Waldrop M.D. Active meniscus of knee Onset: 06/10/2016 Localized, primary osteoarthritis Analy Araya M.D. Active Onset: 09/08/2016 Obstructive sleep apnea syndrome Xiomara Fisher MD Active Onset: 09/08/2016 Obesity Xiomara Fisher MD Active Onset: 09/08/2016 Anaphylactic shock, unspecified, sequela Xiomara Fisher MD Active Family History Date Family Member(s) Problem(s) Comments General cancer General Hypertension Father Heart attack at age 65 Mother Hypertension Mother Breast Cancer Mother Congestive Heart Failure (CHF) age 93 Siblings Sister, breast cancer Social History Type Date Description Comments Marital Status Lives With Alone Occupation Retired Hand Dominance Right-handed Cigarette Use Never Smoked Cigarettes ETOH Use Rarely consumes alcohol Smoking Patient has never smoked Recreational Drug Use Denies Drug Use Daily Caffeine Diet soda occasionally Exercise Type/Frequency Exercises regularly 5x week Allergies, Adverse Reactions, Alerts Date Description Reaction Status Severity Comments 09/03/2014 Hydrochlorothiazide active Fatal anaphylaxis 09/08/2016 Hydromorphone active Headaches 12/20/2017 Levaquin active rash 02/21/2013 NKDA inactive Medications Medication Date Status Form Strength Qnty SIG Indications Ordering Provider Losartan 00/ Active Tablets 50mg 1 by mouth Unknown Potassium 0000 every day Turmeric / Active Capsules 500mg 1 by mouth Unknown 0000 twice a day Escitalopram / Active Tablets 10mg 1 qd Espinoza, Oxalate 0000 Ba Alex Atorvastatin / Active Tablets 80mg 1 by mouth Unknown Calcium 0000 every day Aspirin / Active Tablets 325mg take 1 by Unknown 0000 mouth once a day Prednisone 08/22/ Hx Tablets 10mg 30tabs take40 mg. Tani 2015 - for 4 more Young, 09/07/ days then M.D. 2015 stop Naproxen 06/10/ Hx Tablets 500mg 60tabs 1 tablet M17.0 Analy 2015 - with food Marshal, 09/07/ by mouth M.D. 2015 twice a day(As per DS - patient taking 750 mg. q 6h prn pain) Diazepam 08/23/ Hx Tablets 5mg 2tabs take 1 by Negrita 2012 - mouth 1 Brian, 09/06/ hour prior M.D. 2014 to mri, may repeat x 1 if not sedated Carbamazepine 12/10/ Hx Chewtabs 100mg 630uni increase Negrita 2012 - ts to 2 by Brian, 09/06/ mouth qam, M.DOlesya 2014 2 by mouth qnoon, and 3 by mouth every night Gabapentin 08/16/ Hx Capsules 300mg 450cap take 1 by Negrita 2011 - mouth Brian, 09/06/ every in M.D. 2014 the morning, 1 by mouth qnoon, and 3 by mouth every night Prednisone 07/16/ Hx Tablets 20mg 20tabs take 3 po Negrita 2011 - qam x Niledersreedhar, 02/21/ 3days, M.DOlesya 2012 then 2 po qam x3 days then 1 po qam x3 days then 1/2 po qam x3 days (take in am with food) Multivitamins / Hx Tablets 90tabs 1 po qd Unknown 0000 - 2015 Calcium // Hx Tablets 1250mg 1 po daily Unknown 0000 - 2015 Losartan / Hx Tablets 50mg 1 tab po Unknown Potassium 0000 - daily 2015 Carbamazepine / Hx Chewtabs 100mg 1 tab by Unknown 0000 - mouth tid 03/21/ as needed 2018 Medications Administered in Office Medication Date Status Form Strength Qnty SIG Indications Ordering Provider Depomedrol Administered Injection Analy 40MG 017 Ba Araya Depomedrol Administered Injection Analy 40MG 017 Ba Araya Depomedrol Administered Injection Analy 40MG 016 Ba Araya Depomedrol Administered Injection Dirk Palma, 80MG 012 Ba Vital Signs Date Vital Result Comment 07/13/2018 Height 62 inches 5'2" Weight 199.00 lb Heart Rate 78 /min BP Systolic 128 mmHg BP Diastolic 70 mmHg Respiratory Rate 18 /min Pain Level 0 BMI (Body Mass Index) 36.4 kg/m2 03/22/2018 Height 62 inches 5'2" Weight 193.00 lb Heart Rate 78 /min BP Systolic Sitting 136 mmHg BP Diastolic Sitting 80 mmHg BMI (Body Mass Index) 35.3 kg/m2 02/06/2018 Height 62 inches 5'2" Weight 189.38 lb Heart Rate 72 /min BP Systolic Sitting 110 mmHg BP Diastolic Sitting 72 mmHg Respiratory Rate 14 /min O2 % BldC Oximetry 94 % BMI (Body Mass Index) 34.6 kg/m2 12/20/2017 Height 62 inches 5'2" Weight 190.00 lb Heart Rate 80 /min BP Systolic Sitting 144 mmHg BP Diastolic Sitting 84 mmHg Respiratory Rate 16 /min BMI (Body Mass Index) 34.7 kg/m2 03/29/2017 Height 62 inches 5'2" Weight 195.00 lb BP Systolic 141 mmHg BP Diastolic 82 mmHg Respiratory Rate 17 /min Pain Level 1 BMI (Body Mass Index) 35.7 kg/m2 11/14/2016 Height 62 inches 5'2" Weight 195.00 lb Pain Level 1 BMI (Body Mass Index) 35.7 kg/m2 10/06/2016 Height 62 inches 5'2" Weight 199.00 lb Heart Rate 66 /min BP Systolic Sitting 136 mmHg BP Diastolic Sitting 74 mmHg Respiratory Rate 16 /min O2 % BldC Oximetry 97 % BMI (Body Mass Index) 36.4 kg/m2 09/08/2016 Height 62 inches 5'2" Weight 199.00 lb Heart Rate 99 /min BP Systolic Sitting 138 mmHg BP Diastolic Sitting 76 mmHg Respiratory Rate 16 /min O2 % BldC Oximetry 93 % BMI (Body Mass Index) 36.4 kg/m2 08/01/2016 Height 61 inches 5'1" Weight 189.00 lb Per pt Heart Rate 60 /min Respiratory Rate 16 /min Pain Level 5 episodic pain BMI (Body Mass Index) 35.7 kg/m2 06/10/2016 Height 61 inches 5'1" per patient Weight 189.00 lb per patient Heart Rate 86 /min BP Systolic 174 mmHg BP Diastolic 81 mmHg Pain Level 5 BMI (Body Mass Index) 35.7 kg/m2 09/07/2015 Height 61 inches 5'1" Weight 178.00 lb Heart Rate 76 /min BP Systolic Sitting 132 mmHg BP Diastolic Sitting 76 mmHg Respiratory Rate 16 /min BMI (Body Mass Index) 33.6 kg/m2 09/03/2014 Height 61 inches 5'1" Weight 195.00 lb Heart Rate 76 /min BP Systolic Sitting 150 mmHg BP Diastolic Sitting 88 mmHg Respiratory Rate 16 /min BMI (Body Mass Index) 36.8 kg/m2 02/21/2013 Heart Rate 88 /min BP Systolic Sitting 154 mmHg BP Diastolic Sitting 90 mmHg Respiratory Rate 16 /min Results Test Date Test Result H/L Range Note CBC Auto Diff 08/11/2016 White Blood Count 11.7 10^3/uL High 3.5-10.8 Red Blood Count 4.64 10^6/uL 4.0-5.4 Hemoglobin 13.7 g/dL 12.0-16.0 Hematocrit 42 % 35-47 Mean Corpuscular Volume 90 fL 80-97 Mean Corpuscular Hemoglobin 30 pg 27-31 Mean Corpuscular HGB Conc 33 g/dL 31-36 Red Cell Distribution Width 14 % 10.5-15 Platelet Count 256 10^3/uL 150-450 Mean Platelet Volume 8 um3 7.4-10.4 Abs Neutrophils 7.5 10^3/uL 1.5-7.7 Abs Lymphocytes 3.2 10^3/uL 1.0-4.8 Abs Monocytes 0.8 10^3/uL 0-0.8 Abs Eosinophils 0.1 10^3/uL 0-0.6 Abs Basophils 0.1 10^3/uL 0-0.2 Abs Nucleated RBC 0 10^3/uL Granulocyte % 63.9 % 38-83 Lymphocyte % 27.0 % 25-47 Monocyte % 7.1 % 1-9 Eosinophil % 1.1 % 0-6 Basophil % 0.9 % 0-2 Nucleated Red Blood Cells % 0 Comp Metabolic Panel 08/11/2016 Sodium 136 mmol/L 133-145 Potassium 4.0 mmol/L 3.5-5.0 Chloride 102 mmol/L 101-111 Co2 Carbon Dioxide 23 mmol/L 22-32 Anion Gap 11 mmol/L 2-11 Glucose 83 mg/dL 70-100 Blood Urea Nitrogen 25 mg/dL High 6-24 Creatinine 0.65 mg/dL 0.51-0.95 BUN/Creatinine Ratio 38.5 High 8-20 Calcium 9.4 mg/dL 8.6-10.3 Total Protein 7.1 g/dL 6.4-8.9 Albumin 4.2 g/dL 3.2-5.2 Globulin 2.9 g/dL 2-4 Albumin/Globulin Ratio 1.4 1-3 Total Bilirubin 0.40 mg/dL 0.2-1.0 Alkaline Phosphatase 61 U/L 34-104 Alt 15 U/L 7-52 Ast 14 U/L 13-39 Egfr Non- 90.4 >60 Egfr 116.2 >60 1 Lipid Profile (Trig/Chol/HDL) 08/11/2016 Triglycerides 478 mg/dL 2 Cholesterol 334 mg/dL 3 HDL Cholesterol 46.5 mg/dL 4 LDL Cholesterol (SEE NOTE) mg/dL 5 Laboratory test finding 08/11/2016 Vitamin D Total 25(Oh) 27.7 ng/mL Low 30-50 6 Creatinine 08/30/2013 Creatinine 0.70 mg/dL 0.50-1.40 Egfr Non- 83.5 >60 Egfr 107.3 >60 7 CBC With Manual Diff 04/12/2013 White Blood Count 8.6 10^3/uL 4.8-10.8 Red Blood Count 4.27 10^6/uL 4.0-5.4 Hemoglobin 13.3 g/dL 12.0-16.0 Hematocrit 39 % 35-47 Mean Corpuscular Volume 91 fL 80-97 Mean Corpuscular Hemoglobin 31 pg 27-31 Mean Corpuscular HGB Conc 34 g/dL 31-36 Red Cell Distribution Width 13 % 10.5-15 Platelet Count 240 10^3/uL 150-450 Mean Platelet Volume 7 um3 Low 7.4-10.4 Abs Neutrophils 4.4 10^3/uL 1.5-7.7 Abs Lymphocytes 3.2 10^3/uL 1.0-4.8 Abs Monocytes 0.8 10^3/uL 0-0.8 Abs Eosinophils 0.2 10^3/uL 0-0.6 Abs Basophils 0.1 10^3/uL 0-0.2 Abs Nucleated RBC 0 10^3/uL Neutrophil % 51 % 38-83 Band % 1 % 0-8 Lymphocytes % 35 % 25-47 Monocytes % 9 % 0-13 Eosinophils % 1 % 0-6 Reactive Lymph % 3 % 0-6 RBC Morphology Normal Normal Basic Metabolic Panel 04/12/2013 Sodium 136 mmol/L 133-145 Potassium 4.0 mmol/L 3.5-5.0 Chloride 100 mmol/L Low 101-111 Co2 Carbon Dioxide 27.0 mmol/L 22-32 Anion Gap 9.0 mmol/L 2-11 Glucose 100 mg/dL 70-100 Blood Urea Nitrogen 14 mg/dL 6-24 Creatinine 0.60 mg/dL 0.50-1.40 BUN/Creatinine Ratio 23.3 High 8-20 Calcium 8.5 mg/dL 8.1-9.9 Egfr Non- 100.0 >60 Egfr 128.6 >60 8 1 Because ethnic data is not always readily available, this report includes an eGFR for both -Americans and non- Americans. The National Kidney Disease Education Program (NKDEP) does not endorse the use of the MDRD equation for patients that are not between the ages of 18 and 70, are , have extremes of body size, muscle mass, or nutritional status, or are non- or non-. According to the National Kidney Foundation, irrespective of diagnosis, the stage of the disease is based on the level of kidney function: Stage Description GFR(mL/min/1.73 m(2)) 1 Kidney damage with normal or decreased GFR 90 2 Kidney damage with mild decrease in GFR 60-89 3 Moderate decrease in GFR 30-59 4 Severe decrease in GFR 15-29 5 Kidney failure <15 (or dialysis) 2 Desirable <150 Borderline high 150-199 High 200-499 Very High >500 3 Desirable <200 Borderline high 200-239 High >239 4 Low <40 Desirable: 40-60 High: >60 5 Unable to calculate LDL as triglyceride is > 400 6 FASTING Copy Result to: NEGRITA HIGGINBOTHAM ([id number]) 7 Because ethnic data is not always readily available, this report includes an eGFR for both -Americans and non- Americans. The National Kidney Disease Education Program (NKDEP) does not endorse the use of the MDRD equation for patients that are not between the ages of 18 and 70, are , have extremes of body size, muscle mass, or nutritional status, or are non- or non-. According to the National Kidney Foundation, irrespective of diagnosis, the stage of the disease is based on the level of kidney function: Stage Description GFR(mL/min/1.73 m(2)) 1 Kidney damage with normal or decreased GFR 90 2 Kidney damage with mild decrease in GFR 60-89 3 Moderate decrease in GFR 30-59 4 Severe decrease in GFR 15-29 5 Kidney failure <15 (or dialysis) 8 Because ethnic data is not always readily available, this report includes an eGFR for both -Americans and non- Americans. The National Kidney Disease Education Program (NKDEP) does not endorse the use of the MDRD equation for patients that are not between the ages of 18 and 70, are , have extremes of body size, muscle mass, or nutritional status, or are non- or non-. According to the National Kidney Foundation, irrespective of diagnosis, the stage of the disease is based on the level of kidney function: Stage Description GFR(mL/min/1.73 m(2)) 1 Kidney damage with normal or decreased GFR 90 2 Kidney damage with mild decrease in GFR 60-89 3 Moderate decrease in GFR 30-59 4 Severe decrease in GFR 15-29 5 Kidney failure <15 (or dialysis) Procedures Date CPT Code Description Status 03/12/2018 01413 ECHO Transthorasic Realtime 2D W Doppler & Color Flow Completed Hosp 03/29/2017 Inject/Drain Joint/Bursa Major W/O US Completed 11/14/2016 Inject/Drain Joint/Bursa Major W/O US Completed 06/10/2016 Inject/Drain Joint/Bursa Major W/O US Completed 08/23/2012 Inject/Drain Joint/Bursa Major W/O US Completed 07/30/2012 47619 Xray Knee 3 Views Completed 07/30/2012 [id number] Rad Exam; Knee, Ap&L Completed Encounters Type Date Location Provider CPT E/M Dx Office Visit 03/22/2018 [facility] Negrita Higginbotham M.D. 76747 Z86.73 1:00p [facility] E78.5 I10 G25.0 G50.0 Office Visit 03/12/2018 7:00a [facility] [address] I63.9 I10 E78.5 G47.33 Office Visit 03/12/2018 9:44a [facility] Oliver Jalloh 80061 G45.9 Hospitalists Ba E78.5 I10 G50.0 Office Visit 03/11/2018 8:51a [facility] Negrita Higginbotham, 97855 R47.89 MDora R26.81 I10 Office Visit 03/10/2018 7:00a [facility] Negrita Higginbotham, 41763 R47.89 MDora R26.81 I10 Office Visit 03/10/2018 9:37a [facility] Funmilayo Alcala, 86149 G45.9 Assoc, [facility] Hospitalists I10 G50.0 Office Visit 02/06/2018 10:45a Pulmon[place] [address] G47.33 Services AT [place] Office Visit 12/20/2017 8:00a [facility] Negrita Higginbotham, 19565 G50.0 Services Of [place] G25.0 Office Visit 10/06/2016 9:30a Pulmonology [place] [address] G47.33 Services AT [place] E66.09 Office Visit 09/08/2016 11:30a Pul[facility]ology [place] [address] J96.01 Services AT [place] T88.6xxD T50.2x5D G47.33 E66.09 Z68.36 Office Visit 08/16/2016 9:03a [facility] Stacie Sal, 48454 J18.9 Hospitalists Ba T78.2xxA I10 Office Visit 08/15/2016 9:02a [facility], Dara Schilling, 88826 J18.9 Hospitalists MDora T78.2xxA I10 Office Visit 08/14/2016 9:01a [facility], Dara Schilling, 58922 J18.9 Hospitalists Ba T78.2xxS I10 Office Visit 08/01/2016 1:15p [facility] Analy Araya M.D. 34574 M25.561 C.M.A. M17.11 M25.461 Office Visit 06/10/2016 1:00p [facility] Analy Araya M.D. 51883 M17.0 C.M.A. M25.561 M25.461 Office Visit 09/07/2015 1:00p [facility] Negrita Higginbotham M.D. 03848 G50.0 [facility] G25.0 Office Visit 09/03/2014 11:45a [facility] Negrita Higginbotham M.D. 17320 350.1 [facility] 333.1 Office Visit 08/23/2013 3:15p [facility] Negrita Higginbotham M.D. 59526 350.1 [facility] Office Visit 02/21/2013 3:30p [facility] Negrita Higginbotham M.D. 37123 350.1 [facility] Office Visit 09/17/2012 8:30a [facility] Parveen Waldrop M.D. 72149 836.0 C.M.A. Office Visit 08/23/2012 11:15a [facility] Parveen Waldrop M.D. 96068 716.96 C.M.A. 836.0 Office Visit 07/30/2012 11:00a [facility] Parveen Waldrop M.D. 69996 716.96 C.M.A. 836.0 Office Visit 07/26/2012 11:30a [facility] Negrita Higginbotham M.D. 64431 350.1 [facility] Office Visit 07/11/2012 1:00p [facility] Negrita Higginbotham M.D. 18832 350.1 Services Of [facility] 784.2 Plan of Care Future Appointment(s):11/23/2018 11:00 am - Negrita Higginbotham M.D. at [facility] Services Of [facility]07/13/2018 - Negrita Higginbotham M.D.I63.9 Cerebral infarction, ndvapecughwL60.0 Trigeminal euauaxippX35.0 Essential tremorFollow up :4 months
[2018-07-18] MEDS ORDERED: Iodixanol* (CONTRAST) 320 MG/ML 100 ML SDV IV ONE (12:30)
--- NOTE | 2018-07-18 12:48 | ED ---
Dizziness - HPI Summary HPI Summary: This patient is a 72 year old F with prior hx pontine CVA February 2018presenting to ED accompanied with daughter with a chief complaint of dizziness (room spinning ) since this morning at 0430 when she awoke. Daughter reports she was with the patient at 0430 this morning and found the patient had normal speech, normal strength in bilateral UE, slightly elevated BP. She called Dr. Torres at 1000 when they could get through to the office, who told her to come to the ED. The patient reports she went to bed at 2300 last night and felt fine then. The patient took ASA x1 (325 mg) this am. The patient rates the pain 0/10 in severity. Symptoms aggravated by nothing. Symptoms alleviated by nothing. Patient reports she feels a bit light-headed now but not like she was earlier. Patient denies weakness, FLOOD, visual changes, fever, neck pain, back pain, CP, and SOB. PMHx of stroke in February 2018 (had speech deficit and loss of strength then and a negative CTA then) and vertigo a few years ago. Current vitals include 74 BPM, 95 O2 sat, and BP 152/67. Home Medications Medication Instructions Recorded Confirmed Type Antipyrine-Benzocaine 2 drop RIGHT EAR QID PRN 03/10/18 03/10/18 History Calcium Carbonate/Vitamin D3 1 each PO DAILY 03/10/18 03/10/18 History [Calcium 500 + Vit D Caplet] Cetirizine* [ZyrTEC 10 MG TAB*] 10 mg PO DAILY 03/10/18 03/10/18 History Escitalopram (NF) [Lexapro 10 mg 5 mg PO DAILY 03/10/18 03/10/18 History (NF)] Fluticasone NASAL SPRAY 50MCG* 1 - 2 spray BOTH NARES DAILY 03/10/18 03/10/18 History [Flonase NASAL SPRAY 50MCG*] Losartan TAB* [Cozaar TAB*] 100 mg PO DAILY 03/10/18 03/10/18 History Multivitamins/Minerals TAB* 1 tab PO DAILY 03/10/18 03/10/18 History [Theragran/minerals TAB*] amLODIPine TAB* [Norvasc 5 mg TAB*] 5 mg PO DAILY 03/10/18 03/10/18 History Zolpidem TAB* [Ambien*] 5 mg PO BEDTIME PRN 03/11/18 03/11/18 History Aspirin TAB* [Aspirin 325 MG TAB*] 325 mg PO DAILY tab 03/12/18 Rx Atorvastatin* [Lipitor 80 MG*] 80 mg PO 1700 #30 tab 03/12/18 Rx - History Of Current Complaint Chief Complaint: EDDizziness Stated Complaint: DIZZINESS Time Seen by Provider: 07/18/18 12:23 Hx Obtained From: Patient, Family/Conduit Reamer Operator - daughter, Other: - Dr. Torres called ahead Last Known Well Date: 07/17/18 2300 Onset/Duration: Still Present - she feels light-headed but not the same dizziness (room spinning) as she did before Timing: Hours - 0430 this morning Severity Initially: Moderate Severity Currently: None Character: Room Spinning, Lightheaded, Dizzy Aggravating Factor(s): Nothing Alleviating Factor(s): Nothing Associated Signs And Symptoms: Positive: Other: - Patient denies weakness, FLOOD, visual changes, fever, neck pain, back pain, CP, and SOB. Daughter reports patient had normal speech, normal strength in bilateral UE, slightly elevated BP. Related History: Similar Episode/Dx as - pontine CVA 02/2018 - Allergies/Home Medications Allergies/Adverse Reactions: Allergies Allergy/AdvReac Type Severity Reaction Status Date / Time hydrochlorothiazide Allergy Anaphylatic Verified 07/18/18 13:14 Shock hydromorphone Allergy Headache Verified 07/18/18 13:14 Home Medications: Home Medications Olopatadine 0.2% (NF) [Pataday 0.2% (NF)] 1 drop BOTH EYES DAILY 07/18/18 [ History Confirmed 07/18/18] carBAMazepine CHEW TAB(*) [TEGretol CHEW TAB(*)] 100 mg PO BID 07/18/18 [ History Confirmed 07/18/18] PMH/Surg Hx/FS Hx/Imm Hx Previously Healthy: No Endocrine/Hematology History: Denies: Hx Diabetes Cardiovascular History: Reports: Hx Hypercholesterolemia, Hx Hypertension Denies: Hx Pacemaker/ICD Respiratory History: Reports: Hx Asthma, Hx Pneumonia - 2015 Musculoskeletal History: Reports: Other Musculoskeletal History - Broken shoulder, s/p fix Sensory History: Reports: Hx Contacts or Glasses, Hx Hearing Aid, Hx Hearing Problem Opthamlomology History: Reports: Hx Contacts or Glasses Neurological History: Reports: Hx CVA - pontine, February 2018, [facility] , Other Neuro Impairments/Disorders - Trigeminal neuralgia with surgery to fix Psychiatric History: Denies: Hx Panic Disorder - Cancer History Hx Chemotherapy: No Hx Radiation Therapy: No - Surgical History Surgery Procedure, Year, and Place: , 1969. with appendectomy, 1973. MICRODECOMPRESSION SURGERY TO BRAIN 2003. HYSTERECTOMY AGE 36. LEFT SHOULDER fix after fracture 2009 Hx Anesthesia Reactions: No Infectious Disease History: No Infectious Disease History: Denies: Traveled Outside the [place] in Last 30 Days - Family History Known Family History: Positive: Other - asthma (sister) - Social History Lives: Alone Alcohol Use: Occasionally Alcohol Amount: once a month, 1-2 drinks Hx Substance Use: No Substance Use Type: Reports: None Hx Tobacco Use: No Smoking Status (MU): Never Smoked Tobacco Have You Smoked in the Last Year: No Review of Systems Negative: Fever Positive: Other - denies visual changes Negative: Chest Pain Negative: Shortness Of Breath Positive: Other - denies neck pain and back pain Neurological: Other - dizziness (room spinning) at onset but is currently just feeling light-headed; daughter reports patient had normal speech, normal strength in bilateral UE, slightly elevated BP Negative: Headache Psychological: Normal All Other Systems Reviewed And Are Negative: Yes Physical Exam - Summary Physical Exam Summary: Appearance: Well-appearing, no pain distress, well-nourished Skin: Warm, color reflects adequate perfusion, dry Head: Normal Head/Face inspection, atraumatic Eyes: Conjunctiva clear, PERRL, EOMI, no nystagmus ENT: Normal inspection Neck: Supple, no nodes, no JVD Respiratory: Lungs clear, normal breath sounds, no respiratory distress Cardio: RRR, No murmur, pulses normal, brisk capillary refill Abdomen: Soft, nontender Bowel sounds: Present Musculoskeletal: Strength Intact/ROM intact, no calf tenderness, no edema. Psychological: Normal Neuro: A&O x3, CN II-XII intact, motor function 5/5, sensation intact, cerebellar normal GCS: 15 Triage Information Reviewed: Yes Vital Signs On Initial Exam: Initial Vitals Temp Pulse Resp BP Pulse Ox 98.5 F 74 16 152/67 95 07/18/18 12:17 07/18/18 12:17 07/18/18 12:17 07/18/18 12:17 07/18/18 12:17 Vital Signs Reviewed: Yes Diagnostics - Vital Signs Vital Signs Temp Pulse Resp BP Pulse Ox 07/18/18 12:17 98.5 F 74 16 152/67 95 - Laboratory Result Diagrams: 07/19/18 06:02 07/19/18 06:02 Lab Statement: Any lab studies that have been ordered have been reviewed, and results considered in the medical decision making process. - Radiology CXR Radiology Interpretation Completed By: Radiologist - Stigmata of obstructive lung disease. No acute pulmonary or cardiac process evident. Resolution of previous bilateral pulmonary opacities. ED physician has reviewed this radiology report. - CT Head CTA CT Interpretation Completed By: Radiologist - CT of the brain demonstrates old infarct in the left caudate nucleus. Motion artifact degrades the images in the origin of the left internal carotid artery. No evidence of branch occlusion or aneurysmal dilatation is noted in the head or neck. ED physician has reviewed this radiology report. - EKG 1230 Cardiac Rate: NL - 77 BPM EKG Rhythm: Sinus Rhythm ST Segment: Non-Specific Ectopy: None EKG Interpretation: An EKG at 1230 reveals nml AV/IV CT, nml QTc, and nml axis. EKG Comparison: No Significant Change - from 03/10/18 - Additional Comments Diagnostic Additional Comments: Brain MRI reveals Chronic ischemic White matter change. Old infarct left caudate nucleus. No acute changes are noted. ED physician has reviewed this radiology report. National Institutes Of Health - NIH Scale Level of Consciousness: Alert/Keenly Responsive Ask Patient the Month and His/Her Age: Both Correct Ask Pt to Open/Close Eyes and Marketing Project Lead/Release Non-Paretic Hand: Both Correctly Best Gaze (Only Horizontal Eye Movement): Normal Visual Field Testing: No Visual Loss Facial Paresis-Pt to Smile & Close Eyes or Grimace Symmetry: Normal/Symmetrical Motor Function - Right Arm: No Drift-Holds 10 Seconds Motor Function - Left Arm: No Drift-Holds 10 Seconds Motor Function - Right Leg: No Drift-Holds 10 Seconds Motor Function - Left Leg: No Drift-Holds 10 Seconds Limb Ataxia-Must be out of Proportion to Weakness Present: Absent Sensory (Use Pinprick to Test Arms/Legs/Trunk/Face): Normal Best Language (Describe Picture, Name Items): No Aphasia Dysarthria (Read Several Words): Normal Extinction and Inattention: No Abnormality Total Score: 0 Re-Evaluation - Re-Evaluation First Eval Re-Evaluation Time: 15:11 Change: Unchanged Comment: Patient is getting her MRI. Dizzy Course/Dx - Course Assessment/Plan: This patient is a 72 year old F presenting to ED accompanied with daughter with a chief complaint of dizziness (room spinning) since this morning at 0430. CXR reveals stigmata of obstructive lung disease. No acute pulmonary or cardiac process evident. Resolution of previous bilateral pulmonary opacities. Head CTA demonstrates old infarct in the left caudate nucleus. Motion artifact degrades the images in the origin of the left internal carotid artery. No evidence of branch occlusion or aneurysmal dilatation is noted in the head or neck. EKG done at 1230 reveals NSR at 77 BPM , nml AV/IV CT, nml QTc, and nml axis. No significant change from 03/10/18. Brain MRI reveals Chronic ischemic White matter change. Old infarct left caudate nucleus. No acute changes are noted. The patient will be admitted with dx of orthostatic hypotension and vertigo. Pt was hydrated for the orthostatic hypotension. Pt was seen by Dr. Conner in the ED. Patient understands and agrees with this plan. - Diagnoses Differential Diagnosis/HQI/PQRI: Benign Paroxysmal Positional Vertigo, Coronary Artery Disease, Hypovolemia, Medication Reaction, Metabolic Abnormality, Transient Ischemic Attack Provider Diagnoses: Orthostatic hypotension, Vertigo - Provider Notifications Discussed Care Of Patient With: Cassie Conner Time Discussed With Above Provider: 12:41 Instructed by Provider To: Other - Consulted Dr. Conner who reports the CT and CTA show no new stroke and no vessel eclusions and recommends admission. Consulted Dr. Contreras at 1501 about the patient and he accepts the patient for admission. Discharge - Sign-Out/Discharge Documenting (check all that apply): Patient Departure - Discharge Plan Condition: Stable Disposition: ADMITTED TO [facility] - Billing Disposition and Condition Condition: STABLE Disposition: Admitted to [facility] - Attestation Statements Document Initiated by Scribe: Yes Documenting Scribe: Omari Tran Provider For Whom Scribe is Documenting (Include Credential): Carolee Al MD Scribe Attestation: Omari Nicole, scribed for Carolee Al MD on 07/23/18 at 2245. Scribe Documentation Reviewed: Yes Provider Attestation: The documentation as recorded by the scribe, Omari Tran accurately reflects the service I personally performed and the decisions made by me, Carolee Al MD
--- NOTE | 2018-07-18 13:11 | RAD ---
Indication: Pontine stroke and dizziness. Contrast: Administered 80.0 ml of VISAPAQUE 320 mg/ml CT of the brain, CTA of the neck and head was performed after IV contrast administration. Coronal, sagittal and 3-D reconstructive images were obtained. Noncontrast CT demonstrates ventricles to be normal in size. Left caudate nucleus lacunar infarct is noted. This is likely old. No intracranial mass or hemorrhage is noted. CTA of the neck and head performed after IV contrast administration. Coronal, sagittal and 3-D reconstructive images were obtained. The origins of the great vessels are unremarkable. The common carotid arteries bilaterally are grossly unremarkable. There may be some minimal plaque at the origin of the left internal carotid artery. Motion artifact degrades the images. No evidence of carotid artery dissection is noted. The vertebral arteries demonstrates normal caliber vertebral arteries bilaterally. Intracranial circulation demonstrates normal bifurcation of the intracranial internal carotid arteries. Anterior cerebral arteries are unremarkable. Middle cerebral arteries are unremarkable. No branch occlusion is noted. The basilar artery and posterior cerebral arteries are otherwise unremarkable. Posterior cerebral arteries appear to be supplied by patent posterior communicating arteries bilaterally. IMPRESSION: CT of the brain demonstrates old infarct in the left caudate nucleus. Motion artifact degrades the images in the origin of the left internal carotid artery. No evidence of branch occlusion or aneurysmal dilatation is noted in the head or neck.
--- NOTE | 2018-07-18 13:12 | RAD ---
Indication: Neurologic changes. Code vera. History of asthma. Comparison: August 15, 2016 Technique: Dual energy PA chest. Report: Elevated lung volumes. Mild prominence of the interstitial markings. No focal pulmonary lesion, compelling alveolar consolidation, pleural effusion, pneumothorax. The heart, pulmonary vasculature, and mediastinal contours are unremarkable. Internal fixation hardware at the proximal LEFT humerus. IMPRESSION: #. Stigmata of obstructive lung disease. No acute pulmonary or cardiac process evident. #. Resolution of previous bilateral pulmonary opacities.
[2018-07-18 13:20] LABS: ABS Basophils 0.1 10^3/ul (0-0.2); ABS Eosinophils 0.2 10^3/ul (0-0.6); ABS Lymphocytes 2.5 10^3/ul (1.0-4.8); ABS Monocytes 0.7 10^3/ul (0-0.8); ABS Neutrophils 7.2 10^3/ul (1.5-7.7); ABS Nucleated RBC 0 10^3/ul; Eosinophil % 1.7 % (0-6); Hematocrit 42 % (35-47); Hemoglobin 14.3 g/dl (12.0-16.0); Lymphocyte % 23.6 % (25-47); Mean Corpuscular HGB Conc 34 g/dl (31-36); Mean Corpuscular Hemoglobin 30 pg (27-31); Mean Corpuscular Volume 88 fL (80-97); Mean Platelet Volume 7.5 um3 (7.4-10.4); Nucleated Red Blood Cells % 0.1; Platelet Count 263 10^3/ul (150-450); Red Blood Count 4.78 10^6/ul (4.00-5.40); Red Cell Distribution Width 14 % (10.5-15); White Blood Count 10.8 10^3/ul (3.5-10.8)
[2018-07-18 13:28] LABS: INR 0.91 (0.77-1.02)
[2018-07-18 13:53] LABS: EGFR Non-African American 96.7 (>60)
[2018-07-18] MEDS ORDERED: NS 0.9% 1000 ML* 2,000 ML IV SCH (14:00)
--- NOTE | 2018-07-18 14:11 | CONSULT ---
Consult Consult: Consult note dictated. Ms. Blackburn is a patient of Dr. Contreras. Pt with history of multiple lacunar strokes in the past who presented with sudden onset vertigo and lightheadedness. The vertigo resolved but now she feels lightheaded with positioning. Orthostatic vitals + where the SBP dropped from 159 supine to 131 mmHg standing. She has history of vertigo. The diagnosis is orthostatic hypotension. Further evaluation for small vessel ischemic in the micki is recommended given her previous history of stroke and her presentation of transient vertigo. Recommendations: Admit to observation NS 500 ml IV fluid x 1 MRI brain without contrast given her history of multiple strokes in the past 2D [employer] Neuro checks every 4 hours Advance diet as tolerated Continue aspirin 325 mg daily I will continue to follow.
--- NOTE | 2018-07-18 16:08 | RAD ---
Indication: Vertigo. Sagittal and axial T1, axial T2, FLAIR, diffusion and susceptibility weighted images of the brain were obtained. Ventricular structures are midline. No midline shift is noted. The extra-axial axial spaces are unremarkable. There is no evidence of intracranial mass or hemorrhage. No other high or low density lesions are identified. There is gliosis in the left caudate nucleus with periventricular jugular signal abnormality consistent with old lacunar infarct. This is unchanged from previous exam. Diffusion-weighted images demonstrates no restriction of diffusion. Susceptibility weighted images demonstrates no evidence of hemosiderin. FLAIR images demonstrates no evidence of vasogenic edema although scattered areas of signal abnormality are noted in the subcortical white matter bilaterally. Overall no changes noted since March 12, 2018. IMPRESSION: Chronic ischemic White matter change. Old infarct left caudate nucleus. No acute changes are noted.
[2018-07-18] MEDS ORDERED: Al Hydrox/Mg Hydrox/Simet LIQ* 30 ML UDC PO PRN (16:32)
[2018-07-18] MEDS ORDERED: Acetaminophen TAB* 325 MG PO PRN (16:32)
[2018-07-18] MEDS ORDERED: Ondansetron INJ* 2 MG/ML VIAL IV PRN (16:32)
[2018-07-18] MEDS ORDERED: Albuterol 2.5 MG/3 ML NEB.SOL* (0.083%) INH PRN (16:32)
[2018-07-18] MEDS ORDERED: Atorvastatin* 80 MG TAB PO SCH (17:00)
--- NOTE | 2018-07-18 20:21 | CONS ---
NEUROLOGY CONSULTATION REPORT: DATE OF CONSULT: 07/18/18 CONSULTING PROVIDER: Dr. Carolee Al. REASON FOR CONSULT: "An episode of vertigo." CHIEF COMPLAINT: Lightheadedness. HISTORY OF PRESENT ILLNESS: Ms. Blackburn is a 72-year-old female with a past medical history significant for hypertension, trigeminal neuralgia, hearing loss , chronic tinnitus, left pontine and caudate ischemic infarction with left pontine infarction occurring in February of 2018 without any residual deficits, who presented to [facility] Emergency Department for further evaluation of new onset vertigo associated with lightheadedness. The patient was in normal state of health last night. She has not had any recent travels. She has not had any adjustment of her anti-hypertensive medications. She woke up at 4:30 to go to the bathroom and suddenly she developed vertiginous sensation with the room spinning that lasted for 3 to 5 seconds. She then turned her head and then felt lightheaded, like she was going to fall. She was able to stabilize herself on her feet and walked to the bathroom. She then contacted her daughter, who recommended the patient to be taken to the ER immediately; however, the patient waited until 9 a.[address] to talk to Dr. Torres, who also recommended she gets evaluated in the emergency room. The patient stated that she continues to feel lightheaded. She denied any vertigo at this time. She describes lightheadedness as an unstable feeling whenever she sits up or stands. She has had vertigo and lightheadedness in the past, but this is lasting longer. She denied any headaches, visual disturbances, double vision, slurred speech, focal weakness, or paresthesias. The last time she had vertigo , it was associated with slurred speech in February, where she had the left pontine infarction. The patient is compliant to her medications and takes aspirin 325 mg regularly. The patient has also history of trigeminal neuralgia and is stable on low-dose carbamazepine. She has had Gamma Knife surgery twice and had cranial surgery to relieve the trigeminal nerve once. She stated the Gamma Knife worked best. The patient denied constipation. She does have tremor in the left upper extremity. She has a family history of tremors. The tremor has not changed in frequency or intensity. She has had the tremors for the last [address] Torres knows and is aware of the tremor. The patient denied any swallowing difficulty. She does complain of micrographia, but no shuffling gait or any falls. She denies any REM sleep behavior disorder. PAST MEDICAL HISTORY: Hypertension, asthma, insomnia, and ischemic stroke. PAST SURGICAL HISTORY: Gamma Knife radiation surgery as well as surgery to relive the nerve on the trigeminal nerve for trigeminal neuralgia. MEDICATIONS: 1. Multivitamins. 2. Fluticasone 2 sprays both nares daily. 3. Calcium carbonate 1 each p.o. daily. 4. Cetirizine 10 mg p.o. daily. 5. Amlodipine 5 mg p.o. daily. 6. Losartan 100 mg p.o. daily. 7. Citalopram 5 mg p.o. daily. 8. Antipyrine-benzocaine 2 drop in the right ear 4 times as needed. 9. Aspirin 325 mg daily. 10. Atorvastatin 80 mg daily. 11. Carbamazepine 100 mg. 12. Olopatadine 1 drop both eyes daily. ALLERGIES: HYDROCHLOROTHIAZIDE, HYDROMORPHONE. FAMILY HISTORY: Father had a history of heart disease, son with history of diabetes, and mother and sister had history of breast cancer. There is a family history of stroke. SOCIAL HISTORY: The patient denies any tobacco or recreational drug use. She rarely drinks alcohol. Her daughter, Jessica, is the surrogate decision maker. REVIEW OF SYSTEMS: A 14-point review of system was obtained, and otherwise negative except for what was mentioned in the HPI. PHYSICAL EXAM: Vitals: Temperature of 98.5, pulse of 78, respiratory rate of 16, oxygen saturation of 96, blood pressure of 152/67. Orthostatic vitals were obtained and are positive. The patient had a drop in systolic blood pressure that measured 159 when supine and 131 when lying flat. Her heart rate did not change at 81 and 82 respectively. To be exact at 1324, the patient's blood pressure was 159/70, pulse of 80, and at 1329, when the patient is standing from a supine position, blood pressure went to 131/76 with a heart rate of 82. General: Well- nourished, well-developed female, in no acute distress. Head is atraumatic, normocephalic. Eyes: Conjunctivae/corneas are clear. Neck is supple and symmetrical with no carotid bruits. Lungs are clear to auscultation bilaterally. Regular rate and rhythm with normal S1, S2. Extremities: Normal range of motion with no cyanosis. Skin: No skin lesions or laceration. Psych : The affect is broad and normal mood. She is easy to establish rapport. Mental status: Awake and alert, oriented to person, place, time, and general circumstances. Speech and language including expression, naming, and repetition and comprehensions were assessed and found to be normal. Normal confrontation testing bilaterally with pupils are mid range and reactive to light with normal consensual response. Extraocular muscles were intact. There is no ptosis. Sensation is intact on the forehead, cheeks, and jaw region bilaterally. There is no facial droop. She is able to hear throughout the history process, but she does wear hearing aids. Symmetrical palatal elevation. Normal strength against resistance. Tongue is symmetrical and midline with no atrophy or fasciculations. Motor: No abnormal movements or pronator drift. Normal bulk and tone throughout. No fasciculation. Neck extension 5. Shoulder range of motion is full. Elbow flexion, extension, wrist flexion and extension, finger flexion and extension, hip flexion and abduction, knee flexion and extension, and ankle dorsiflexion and plantar flexion are 5/5. Reflexes: Right/left, brachioradialis 2/1, biceps 2/1, triceps 2/1, patella 2/1 , ankle 1/1, plantar flexor/flexor. Sensation is intact to light touch and pinprick throughout. She has vibratory sensation up to 12 seconds on the right and 11 seconds on the left with intact proprioception of the great toes. Coordination: Normal [id number] and rapid alternating movement. Gait and Station: Narrow based, normal stance and gait with no ataxia. HiNTs examination was slightly positive towards the right side. DIAGNOSTIC STUDIES/LAB DATA: WBC of 10, hemoglobin of 14, hematocrit of 42, platelet count of 263. INR 0.91. Sodium of 137, potassium 4.3, chloride 102, carbon dioxide of 26, creatinine of 0.61, lactic acid 1.5. Imaging studies: Head CT showed evidence of a remote left pontine and left periventricular and caudate nucleus infarction. CTA of the head and neck showed no evidence of large vessel occlusion. ASSESSMENT: 1. Mrs. Marquise Blackburn is a 72-year-old female with history of hypertension and multiple lacunar infarction, who presented with a sudden onset vertigo followed by lightheadedness. The patient had positive orthostatic vitals on examination with weakly positive HiNTs examination towards the right. I do not suspect the patient is having an acute ischemic stroke. Instead, I think the patient is symptomatic from orthostatic hypertension as well as has an exacerbation of her chronic vertigo. Currently, she denied any vertiginous symptoms and mostly has symptoms of lightheadedness. Other than orthostatic hypertension that could be related to dehydration or medication side effects, we will need to further evaluate for secondary causes. I did order an MRI of the brain without contrast just to rule out any possibility of ischemic strokes given that she has had multiple strokes in the past. However, if we do find any abnormality on MRI, it is unlikely going to explain her lightheadedness, but could explain the transient vertigo that she had this morning. 2. The patient has tremors on the left upper extremity. This is an asymmetric tremor at rest. Although, she has been diagnosed with essential tremor in the past and she does have a family history of essential tremors, the asymmetric component is concerning. She is following up with Dr. Sylvia Torres. I will defer further recommendations to her, but I will continue to monitor for any possible progression to a neurodegenerative disorder, especially since now the patient is developing some orthostatic hypotension. 3. Hypertension - our goal is to keep her within normal blood pressure ranges. RECOMMENDATIONS: Admit for observation. Ordered an MRI of the brain without contrast. Ordered an 2D transthoracic echo. Neuro checks every 4 hours for the next 24 hours. The patient was ruled out for an candidate for IV t-PA due to be in outside the therapeutic window and mechanical thrombectomy since the CTA did not show any large vessel occlusion, plus her NIH is 0, and she would not be a candidate for any intervention. We will hold off on PT/OT/POT FILLER evaluation. Please continue the aspirin 325 mg daily and high intensity statin therapy. TIME SPENT: I spent a total of 70 minutes, of which greater than 50% was spent directly reviewing the medical chart, obtaining history, examining the patient, and discussing the treatment plan as mentioned above. [id number]/[facility] #: [id number] ALISTAIR
[2018-07-18] MEDS ORDERED: carBAMazepine CHEW TAB(*) 100 MG PO SCH (21:00)
--- NOTE | 2018-07-18 21:18 | HP ---
CC: Dr. Isai Espinoza; Dr. Negrita Torres; Dr. Conner * ADMISSION HISTORY AND PHYSICAL: DATE OF ADMISSION: 07/18/18 PATIENT OF ADMITTING HOSPITALIST: Dr. Artemio Contreras.* (DICTATED BY LAURI SANCEHZ) PRIMARY CARE PROVIDER: Dr. Isai Espinoza. PRIMARY NEUROLOGIST: Dr. Negrita Torres. CONSULTING NEUROLOGIST: Dr. Cassie Conner. CHIEF COMPLAINT: Dizziness. HISTORY OF PRESENT ILLNESS: Ms. Blackburn is a 72-year-old female with past medical history significant for hypertension, trigeminal neuralgia and recent pontine CVA back in February of this year, who reports being in her usual state of health until the past couple of days when she started to have dizzy spells. The patient felt very dizzy this morning and she called Dr. Torres, her primary neurologist and was informed to come to the emergency room for further evaluation. The patient was diagnosed with multiple lacunar strokes in the past back in February of this year and presented with sudden onset of vertigo and lightheadedness, but denies any chest pain, shortness of breath, or syncope. Her vertigo eventually resolved, but she still feels lightheaded especially with positioning or when she gets up from a sitting position. She does have history of vertigo and she presented to the emergency room for further evaluation. She was evaluated in the emergency room and seen by Dr. Conner in consultation. She had laboratory workup that revealed normal CBC and normal chemistry panel. She also had a CTA of the head as well as brain MRI that revealed no significant acute infarct. Given her known history of CVA as well as her orthostatic hypotension and dizzy spells, it was recommended for the patient to be admitted for observation under hospitalist services and for further evaluation of possible TIA. PAST MEDICAL HISTORY: As mentioned above, significant for: 1. Hypertension. 2. Trigeminal neuralgia. 3. History of CVA and multiple lacunar strokes back in February of this year. 4. Hyperlipidemia. 5. Seasonal allergies. 6. Anxiety and depression. PAST SURGICAL HISTORY: Significant for trigeminal neuralgia surgery. CURRENT MEDICATIONS: Her medications at home include: 1. Norvasc 5 mg p.o. daily. 2. Antipyrine benzocaine ear drops 2 drops to the right ear once daily as needed for earache. 3. Calcium carbonate with multivitamins 1 tablet p.o. daily. 4. Carbamazepine chewable tablet 100 mg p.o. b.i.d. 5. Zyrtec 10 mg p.o. daily. 6. Lexapro 5 mg p.o. daily. 7. Fluticasone nasal spray 50 mcg 2 sprays in both nostrils once daily. 8. Cozaar 100 mg p.o. daily. 9. Multivitamins 1 tablet p.o. daily. 10. Aspirin 325 mg p.o. daily. 11. Lipitor 80 mg p.o. q.h.s. ALLERGIES: She is allergic to HYDROMORPHONE and HYDROCHLOROTHIAZIDE. FAMILY HISTORY: Her father had history of heart disease, son with a history of diabetes mellitus, and mother and sister with history of breast cancer. SOCIAL HISTORY: The patient is a nonsmoker. Denies recreational drug use. She drinks alcohol rarely. Her daughter, Jessica Caceres, is her surrogate decision maker, and she wishes to be a full code. REVIEW OF SYSTEMS: See HPI. Otherwise, 12-point review of systems were examined and they were essentially negative. PHYSICAL EXAMINATION GENERAL: She is a pleasant, obese, older female, in no acute distress or discomfort at the time of admission. VITAL SIGNS: Revealed temperature of 98.5, pulse 67, blood pressure 138/69, respirations 18, with O2 sat of 95% on room air. HEENT: Head is normocephalic, atraumatic. Sclerae anicteric. PERRLA. EOMs intact. Oropharynx is pink and moist. NECK: Supple. Trachea midline. No cervical adenopathy or thyromegaly. LUNGS: Clear to auscultation bilaterally. HEART: Regular rate and rhythm. Normal S1 and S2 without rubs, murmurs, or gallops. BREASTS: Exam deferred at this time. ABDOMEN: Soft, obese, nontender, and nondistended. There are no hernias, masses, or hepatosplenomegaly. BACK: With normal curvature and no CVA tenderness. EXTREMITIES: Without cyanosis, clubbing, or edema. NEUROLOGIC: She is awake, alert, and oriented x4. Tongue is midline. Handgrip is equal bilaterally and sensation is intact throughout. RECTAL: Exam deferred at this time. LABORATORY WORKUP: CBC with white count of 10,000, hemoglobin 14.3, hematocrit of 42, and platelets of 263. Chemistry panel with sodium of 137, potassium of 4.3, chloride 102, CO2 of 26, BUN of 16, and creatinine of 0.6. Glucose is 93, lactic acid 1.5. LFTs within normal limits. Troponin 0.01 and lipid panel with elevated triglycerides of 186 and total cholesterol of 187. ACCESSORY DIAGNOSTIC DATA: CTA of the head demonstrates an old infarct in the left caudate nucleus and no evidence of any occlusion or aneurysm in the head or neck. Her brain MRI showed chronic white matter changes with old infarct at the left caudate nucleus and no acute changes are noted. IMPRESSION: A 72-year-old female with history of hypertension, trigeminal neuralgia and seasonal allergies as well as recent cerebrovascular accident with multiple lacunar strokes most recently in February of this year, who presented to the emergency room with sudden onset of vertigo, dizziness and lightheadedness and found to have normal images of the head and neck as well as orthostatic hypotension in the emergency room. ASSESSMENT AND PLAN: The patient will be admitted to telemetry unit for observation under hospitalist services for the followin. Dizziness. There are multiple factors responsible for her symptoms more than likely her history of vertigo and orthostatic hypotension. The patient felt slightly better after a bolus of 3 L of normal saline in the emergency room. She is able to get up and use the bathroom with only slight lightheadedness, but denied any syncopal episodes or vertigo. She had expressed no neurological deficit on exams and appears to have normal neurological exams and normal NIH Stroke Scale. She will be admitted for observation at telemetry unit with neurological checks every 4 hours. Per Neurology consultation, she will also get a transthoracic echocardiogram and we will continue her aspirin and all her medications as prescribed. The patient appears to be stable at this point and likely to go home tomorrow and follow up with her neurologist as an outpatient. 2. Hypertension. I will continue her Norvasc and Cozaar. 3. Hyperlipidemia. We will continue her statin therapy. 4. History of cerebrovascular accident. We will continue her aspirin therapy. 5. Trigeminal neuralgia. We will continue supportive care. 6. Morbid obesity. Supportive care. 7. Code status: She is a full code. 8. Deep vein thrombosis prophylaxis: She is a high risk and we will cover her with subcu heparin. 9. Disposition: Observation in telemetry with neurologic check and to be reexamined in the morning by neurological consultation, likely to be discharged home. TIME SPENT: Approximately 60 minutes were spent admitting this patient with greater than 50% on taking history and performing physical exam. I went on and discussed the case with my attending, who agreed to plan of care and will follow her up accordingly. LAURI SANCHEZ [id number]/[facility] #: [id number] MTDEsteban
[2018-07-18] MEDS ORDERED: Citalopram TAB* 10 MG PO SCH (21:30)
[2018-07-18] MEDS: Heparin VIAL(*) 5000 UNITS/ML VIAL (FIVE THOUSAND) SUBCUT SCH (21:59)
[2018-07-19 04:29] LABS: Urine Appearance Clear; Urine Blood Negative (Negative); Urine Color Straw; Urine Ketones Negative (Negative); Urine Protein Negative (Negative); Urine Urobilinogen Negative (Negative)
[2018-07-19 06:10] LABS: ABS Basophils 0.1 10^3/ul (0-0.2); ABS Eosinophils 0.2 10^3/ul (0-0.6); ABS Lymphocytes 3.4 10^3/ul (1.0-4.8); ABS Monocytes 0.8 10^3/ul (0-0.8); ABS Neutrophils 5.3 10^3/ul (1.5-7.7); ABS Nucleated RBC 0 10^3/ul; Eosinophil % 2.3 % (0-6); Hematocrit 40 % (35-47); Hemoglobin 13.6 g/dl (12.0-16.0); Lymphocyte % 34.2 % (25-47); Mean Corpuscular HGB Conc 34 g/dl (31-36); Mean Corpuscular Hemoglobin 31 pg (27-31); Mean Corpuscular Volume 89 fL (80-97); Mean Platelet Volume 7.1 um3 (7.4-10.4); Nucleated Red Blood Cells % 0.1; Platelet Count 234 10^3/ul (150-450); Red Blood Count 4.46 10^6/ul (4.00-5.40); Red Cell Distribution Width 14 % (10.5-15); White Blood Count 9.8 10^3/ul (3.5-10.8)
[2018-07-19] MEDS: Heparin VIAL(*) 5000 UNITS/ML VIAL (FIVE THOUSAND) SUBCUT SCH (06:16)
[2018-07-19 06:36] LABS: EGFR Non-African American 86.8 (>60)
[2018-07-19 08:56] VITALS: BP 148/61
[2018-07-19] MEDS ORDERED: amLODIPine TAB* 5 MG PO SCH (09:00)
[2018-07-19] MEDS ORDERED: Aspirin TAB* 325 MG PO SCH (09:00)
[2018-07-19] MEDS ORDERED: Olopatadine 0.2% (NF) 1 DROP BTL BOTH EYES SCH (09:00)
[2018-07-19] MEDS ORDERED: Losartan TAB* 25 MG PO SCH (09:00)
[2018-07-19] MEDS ORDERED: Multivitamins/Minerals TAB PO SCH (09:00)
[2018-07-19] MEDS ORDERED: Cetirizine* 10 MG TAB PO SCH (09:00)
[2018-07-19] MEDS ORDERED: Fluticasone NASAL SPRAY 50MCG* 16 gm SPRAY BTL BOTH NARES SCH (09:00)
--- NOTE | 2018-07-19 15:50 | ECHO ---
Patient: DEBORAH MOULTON [facility] Rec#: [id number] : 1945 Date: 07/19/2018 Age: 72y Height: 152 cm / 59.8 in Weight: 89.8 kg / 197.9 lbs Sex: F BSA: 1.86 Room#: [facility] Admit Date#: 07/18/2018 Type: Inpatient Referring: Cassie Conner Reading: Pankaj Callahan MD Single End Sewer: Funmilayo Moore RDCS CC: Isai Espinoza MD Transthoracic Echocardiogram Indication: TIA BP: 144/63 HR: 64 Rhythm: NSR Findings History: Multiple lacunar strokes, vertigo, orthostatic hypotension, HLD, HTN, asthma. Technical Comments: The study quality is fair. Completed at 0830. Left Ventricle: The left ventricular chamber size is normal. Mild concentric left ventricular hypertrophy is observed. There is increased basal septal hypertrophy noted without evidence of an increased gradient across the left ventricular outflow tract. Global left ventricular wall motion and contractility are within normal limits. There is normal left ventricular systolic function. The estimated ejection fraction is 60-65%. Abnormal left ventricular diastolic function is observed. There is an E to A reversal in the mitral valve flow pattern suggestive of diastolic dysfunction. Left Atrium: The left atrial chamber size is normal. Right Ventricle: Moderator Band present. The right ventricular cavity size is normal. The right ventricular global systolic function is normal. Right Atrium: The right atrial cavity size is normal. Aortic Valve: The aortic valve is trileaflet. The aortic valve leaflets are mildly thickened. Systolic excursion of the aortic valve cusps is reduced. The aortic valve leaflets appear mildly sclerotic. There is aortic annular calcification. There is a trace of aortic regurgitation. There is borderline aortic stenosis present. Mitral Valve: There is mitral annular calcification. The mitral valve leaflets are mildly thickened. There is trace to mild mitral regurgitation. There is no evidence of mitral stenosis. Tricuspid Valve: The tricuspid valve leaflets are normal. There is trace tricuspid regurgitation. Unable to estimate the right ventricular systolic pressure. There is no tricuspid stenosis. Pulmonic Valve: The pulmonic valve appears normal. There is no evidence of pulmonic regurgitation. There is no pulmonic stenosis. Pericardium: There is no significant pericardial effusion. A pericardial fat pad is visualized. Aorta: There is mild dilatation of the ascending aorta. There is no dilatation of the aortic arch. The aortic root is normal in size. Pulmonary Artery: The main pulmonary artery appears normal. Venous: The inferior vena cava appears normal in size. There is a greater than 50% respiratory change in the inferior vena cava dimension. Conclusions Mild concentric left ventricular hypertrophy is observed. There is a prominent septal knuckle. The estimated ejection fraction is 60-65%. There is an E to A reversal in the mitral valve flow pattern suggestive of diastolic dysfunction. The aortic valve leaflets appear mildly sclerotic. Systolic excursion of the aortic valve cusps is reduced. There is a trace of aortic regurgitation. There is mitral annular calcification. There is trace to mild mitral regurgitation. There is mild dilatation of the ascending aorta. Similar to 02/2018 Measurements Name Value Normal Range RVIDd (AP) 2D 3.7 cm (0.9 - 2.6) RVDdMajor (2D) 3.9 cm (2.2 - 4.4) RAd ISD 4CH 4.8 cm (3.4 - 4.9) RA (A4C)W 4.5 cm (2.9 - 4.6) IVSd (2D) 1.1 cm (0.6 - 1) LVPWd (2D) 1.1 cm (0.6 - 1) LVIDd (2D) 3.6 cm (3.6 - 5.4) LVIDs (2D) 2.6 cm - LV FS (2D) 28 % (25 - 45) Aortic Annulus 2 cm (1.4 - 2.6) Ao root diameter (2D) 2.8 cm (2.1 - 3.5) Ascending Ao 3.5 cm (2.1 - 3.4) Aortic arch 2.4 cm (1.8 - 3.4) LA dimension (AP) 2D 3.6 cm (2.3 - 3.8) LAd ISD 4CH 5 cm (2.9 - 5.3) LA ISD 4CH W 4.1 cm (2.5 - 4.5) Name Value Normal Range LA ESV BP (A/L) index 24 ml/m2 - Name Value Normal Range MV E-wave Vmax 0.8 m/sec - MV deceleration time 243 msec - MV A-wave Vmax 1.06 m/sec - MV E:A ratio 0.8 ratio - LV septal e' Vmax 0.06 m/sec - LV lateral e' Vmax 0.09 m/sec - LV E:e' septal ratio 13.33 ratio - LV E:e' lateral ratio 8.89 ratio - Name Value Normal Range AV Vmax 1.6 m/sec - AV VTI 39.5 cm - AV peak gradient 10 mmHg - AV mean gradient 5 mmHg - LVOT diameter 2 cm - LVOT Vmax 1 m/sec - LVOT VTI 23.1 cm - LVOT peak gradient 4 mmHg - LVOT mean gradient 2 mmHg - [place] Vmax 0.6 m/sec - Name Value Normal Range IVC diameter 1.9 cm - Name Value Normal Range PV Vmax 1 m/sec - PV peak gradient 4 mmHg -
== END 2018-07-19 14:44 | disposition home or self-care (01) ==
LOC: ED 12:11 → MEDTELE 17:09
PROVIDERS: ADMIT Student in an Organized Health Care Education/Training Program; ATTEND Internal Medicine
DX: R42 Dizziness and giddiness (principal); I10 Essential (primary) hypertension; E78.5 Hyperlipidemia, unspecified; I51.7 Cardiomegaly; I95.1 Orthostatic hypotension; Z86.73 Personal history of transient ischemic attack (TIA), and cerebral infarction without residual deficits; G50.0 Trigeminal neuralgia; E66.01 Morbid (severe) obesity due to excess calories; Z79.899 Other long term (current) drug therapy; Z88.8 Allergy status to other drugs, medicaments and biological substances; Z82.49 Family history of ischemic heart disease and other diseases of the circulatory system; Z83.3 Family history of diabetes mellitus; Z79.82 Long term (current) use of aspirin; E78.00 Pure hypercholesterolemia, unspecified; J45.909 Unspecified asthma, uncomplicated
CPT/HCPCS: 36415; 70496; 70498; 70551; 71045; 80048; 80053; 80061; 81003; 83605; 84484; 85025; 85610; 85730; 86850; 86900; 86901; 93005; 93306; 96360; 96361; 96372; 99283; A9270-GY; G0378; J1644; Q9967

== ENCOUNTER 2021-04-17 17:41 | Inpatient (IN) ==
[2021-04-17 19:03] LABS: ABS Basophils 0.2 10^3/ul (0-0.2); ABS Eosinophils 0.3 10^3/ul (0-0.6); ABS Neutrophils 9.3 10^3/ul (1.5-7.7); Hematocrit 41 % (35-47); Hemoglobin 13.7 g/dL (12.0-16.0); Mean Corpuscular HGB Conc 33 g/dL (31-36); Mean Corpuscular Hemoglobin 31 pg (27-31); Mean Corpuscular Volume 92 fL (80-97); Mean Platelet Volume 8.2 fL (7.4-10.4); Platelet Count 222 10^3/uL (150-450); Red Blood Count 4.47 10^6 /uL (3.70-4.87); Red Cell Distribution Width 13 % (10-15); White Blood Count 13.7 10^3/uL (3.5-10.8)
[2021-04-17 19:09] LABS: INR 1.03 (0.82-1.09)
[2021-04-17 19:18] LABS: ALT 14 U/L (7-52); AST 14 U/L (13-39); Albumin/Globulin Ratio 1.3 (1-3); Alkaline Phosphatase 63 U/L (35-149); Anion Gap 8 mmol/L (2-11); Blood Urea Nitrogen 16 mg/dL (6-24); CO2 Carbon Dioxide 26 mmol/L (22-32); Chloride 103 mmol/L (101-111); EGFR African American 107.8 (>60); EGFR Non-African American 89.1 (>60); Glucose 115 mg/dL (70-100); Potassium 3.6 mmol/L (3.5-5.0); Sodium 137 mmol/L (135-145)
[2021-04-17 19:23] LABS: Troponin I 0.03 ng/mL (<0.03)
[2021-04-17] MEDS ORDERED: NS 0.9% 1000 ml BAG 1,000 ML IV ONE (20:49)
[2021-04-17] MEDS ORDERED: Iohexol 350 (CONTRAST) 500 ML MDV IV ONE (21:04)
[2021-04-17 21:54] LABS: Troponin I 0.04 ng/mL (<0.03)
[2021-04-17] MEDS ORDERED: Ondansetron 4 mg VIAL 2 MG/ML 2 ml VIAL IV PRN (23:05)
[2021-04-18 08:29] LABS: ABS Eosinophils 0.3 10^3/ul (0-0.6); ABS Lymphocytes 2.7 10^3/ul (1.0-4.8); ABS Monocytes 0.6 10^3/ul (0-0.8); ABS Neutrophils 6.8 10^3/ul (1.5-7.7); Eosinophil % 2.5 %; Hematocrit 40 % (35-47); Hemoglobin 13.8 g/dL (12.0-16.0); Lymphocyte % 25.8 %; Mean Corpuscular HGB Conc 34 g/dL (31-36); Mean Corpuscular Hemoglobin 31 pg (27-31); Mean Corpuscular Volume 90 fL (80-97); Mean Platelet Volume 7.7 fL (7.4-10.4); Platelet Count 246 10^3/uL (150-450); Red Blood Count 4.48 10^6 /uL (3.70-4.87); Red Cell Distribution Width 13 % (10-15); White Blood Count 10.4 10^3/uL (3.5-10.8)
[2021-04-18 08:46] LABS: Calcium 8.9 mg/dL (8.6-10.3); EGFR African American 100.6 (>60); EGFR Non-African American 83.2 (>60); Potassium 3.9 mmol/L (3.5-5.0)
[2021-04-18 08:50] LABS: Troponin I 0.04 ng/mL (<0.03)
[2021-04-18] MEDS ORDERED: Aspirin EC 81 mg TAB.EC (enteric coated) PO SCH (09:00)
[2021-04-18] MEDS ORDERED: Multivitamins/Minerals TAB PO SCH (09:00)
[2021-04-18] MEDS: Enoxaparin 100 MG/ML SYR SUBCUT SCH ×2 (11:57)
[2021-04-18 16:07] VITALS: BP 156/67
== END 2021-04-18 17:30 | disposition home or self-care (01) | DRG 176 ==
LOC: ED 17:41 → MEDTELE 22:04
PROVIDERS: ADMIT Student in an Organized Health Care Education/Training Program; ATTEND Internal Medicine

== ENCOUNTER 2024-04-18 09:53 | Observation (INO) ==
[~2024-04-18 09:53] MED LIST: Dexamethasone IV 4 MG/ML VIAL 1 ml VIAL ONE; Lidocaine 2% PF 5 ML VIAL ONE; NS 0.45% 1000 ml BAG 1,000 ML IV SCH; Naloxone 0.4 mg VIAL 0.4 mg/ml 1 ml VIAL IV PRN; Ondansetron 4 mg VIAL 2 MG/ML 2 ml VIAL ONE; Propofol 10 MG/ML 20 ML BTL ONE
[2024-04-18] MEDS ORDERED: Tranexamic Acid 1 GM/100ML BAG 2,000 MG/200 ML BAG IV ONE (10:31)
[2024-04-18] MEDS ORDERED: ceFAZolin 2 GM in NS PREMIX 2 GM/100 ML BAG IVPB ONE (10:32)
[2024-04-18] MEDS ORDERED: Buffered Lidocaine 1% SYRIN 1 ml ONE (10:32)
[2024-04-18] MEDS ORDERED: fentaNYL 100 mcg/2 ml 50 MCG/ML VIAL ONE ×7 (10:44→15:38)
[2024-04-18] MEDS ORDERED: Midazolam 2 mg/2 ml VIAL 1 mg/ml 2 ml VIAL (2 mg) ONE ×2 (10:44→11:27)
[2024-04-18 11:01] LABS: Rapid COVID-19 Molecular Undetected (Undetected)
[2024-04-18] MEDS ORDERED: ROPIVACAINE 5 MG/ML 30 ML BTL (0.5%) ONE ×2 (11:26→11:51)
[2024-04-18] MEDS ORDERED: Rocuronium 50 mg VIAL 10 mg/ml 5 ml VIAL (50 mg) ONE (12:14)
[2024-04-18] MEDS ORDERED: Morphine 2 MG/ML SYRINGE IV PRN (12:15)
[2024-04-18] MEDS ORDERED: Ondansetron ODT 4 mg TAB 4 MG TAB PO PRN (12:15)
[2024-04-18] MEDS ORDERED: Calcium Carb (TUMS) 500 mg CHEW TAB PO PRN (12:15)
[2024-04-18] MEDS ORDERED: Ondansetron 4 mg VIAL 2 MG/ML 2 ml VIAL IV PRN (12:15)
[2024-04-18] MEDS ORDERED: Lactulose 30 ml UDC PO PRN (12:15)
[2024-04-18] MEDS ORDERED: Magnesium Hydroxide LIQ 30 ML UDC PO PRN (12:15)
[2024-04-18] MEDS ORDERED: Propofol 10 MG/ML 20 ML BTL ONE ×2 (13:07→13:49)
[2024-04-18] MEDS ORDERED: Dexmedetomidine 200 mcg/2 ml 2 ml VIAL (200 mcg) ONE (13:11)
[2024-04-18] MEDS ORDERED: Labetalol IV 5 MG/ML 20 ml VIAL ONE (13:16)
[2024-04-18] MEDS: fentaNYL 100 mcg/2 ml 50 MCG/ML VIAL IV PRN (15:41)
[2024-04-18] MEDS: Buffered Lidocaine 1% SYRIN 1 ml INTRADERM ONE (18:00)
[2024-04-18] MEDS: Acetaminophen IV 1 GM/100ML 1,000 MG/100 ML BAG IV ONE (18:00)
[2024-04-18] MEDS: Lactated Ringers 1000 ml BAG 1,000 ML IV SCH ×2 (18:00→18:15)
[2024-04-18] MEDS: Magnesium Hydroxide LIQ 30 ML UDC PO SCH (21:11)
[2024-04-18] MEDS: ceFAZolin 2 GM PREMIX 2 GM/50 ML BAG IVPB SCH (21:59)
[2024-04-19 06:49] LABS: Hematocrit 31.2 % (35-45); Hemoglobin 10.7 g/dL (11.5-14.3); Mean Platelet Volume 7.9 fL (7.5-11.2); Platelet Count 239 10^3/uL (150-450)
[2024-04-19 07:03] LABS: Creatinine, Serum 0.71 mg/dL (0.51-0.95); Potassium 4.4 mmol/L (3.5-5.0); eGFR CKD-EPI 87.5 (>60)
[2024-04-19] MEDS: Vitamin THERAPEUTIC TAB PO SCH (09:33)
[2024-04-19 11:06] VITALS: BP 117/52
== END 2024-04-19 15:25 | disposition home or self-care (01) ==
LOC: OR 09:53 → SSU 09:53 → EDSTATUS 12:30
PROVIDERS: ADMIT Orthopaedic Surgery Adult Reconstructive Orthopaedic Surgery; ATTEND Orthopaedic Surgery Adult Reconstructive Orthopaedic Surgery